=== PATIENT | female | born 1940 | race Caucasian/White ===

== ENCOUNTER 2017-05-28 10:03 | Inpatient (IN) | payer MEDICARE, BC ==
[2017-05-28] VITALS (7 sets, daily range): BP systolic 158–234; BP diastolic 68–104; PULSE 17–72; RESP 16–18; TEMP 97.6–98.4; O2SAT 91–96
[~2017-05-28] VITALS: Ht 162.6 cm; Wt 96.0 kg
[~2017-05-28 10:03] MED LIST: ALPR.25 PO; AMOX500T PO; ASPI81TA82 PO; BENI20TA25 PO; BRIM0.2S; LEVO100T4 PO; LEXA20TA PO; TIMO0.5S29 EACH EYE; TRAV0.00 EACH EYE
[2017-05-28] MEDS ORDERED: SODIUM CHLORIDE 0.9% FLUSH 10 ML FLUSH IV FLUSH PRN ×2 (10:45→14:15)
[2017-05-28] MEDS ORDERED: OMEP20TA93 PO (11:03)
[2017-05-28] MEDS ORDERED: TIMO0.5S30 EACH EYE (11:03)
[2017-05-28] MEDS ORDERED: ALPR0.25 PO (11:03)
[2017-05-28] MEDS ORDERED: ASPI-516 CHEW (11:03)
[2017-05-28] MEDS ORDERED: LEVO100T5 PO (11:03)
[2017-05-28] MEDS ORDERED: ESCI20TA PO (11:03)
[2017-05-28] MEDS ORDERED: TRAV0.00 EACH EYE (11:03)
[2017-05-28] MEDS ORDERED: BRIM0.2S4 EACH EYE (11:03)
[2017-05-28] MEDS ORDERED: LOSA100T PO (11:03)
[2017-05-28] MEDS ORDERED: AMLO5TAB2 PO (11:03)
--- NOTE | 2017-05-28 11:24 | RADRPT ---
EXAM DATE/TIME: 05/28/2017 11:12 [facility] COMPARISON: No previous studies available for comparison. INDICATIONS : Chest pain. Patient complains of mid epigastric pain that radiates to her back and also has vomiting. MEDICAL HISTORY : None. SURGICAL HISTORY : None. ENCOUNTER: Initial ACUITY: 1 day PAIN SCORE: 9/10 LOCATION: Bilateral chest FINDINGS: A single view of the chest demonstrates the lungs to be symmetrically aerated without evidence of mas s, infiltrate or effusion. The heart size is mildly prominent.. Osseous structures are intact. CONCLUSION: No acute intrathoracic disease. Bob Henderson MD on May 28, 2017 at 11:23 Board Certified Radiologist. This report was verified electronically.
[2017-05-28 11:32] LABS: AUTOMATED NEUTROPHIL # 5.6 TH/MM3 (1.8-7.7); BASOPHIL # 0.1 TH/MM3 (0-0.2); BASOPHIL % 0.8 % (0.0-2.0); EOSINOPHIL % 0.6 % (0.0-4.0); HEMATOCRIT 36.2 % (35.0-46.0); HEMOGLOBIN 12.5 GM/DL (11.6-15.3); LYMPH % 9.1 % (9.0-44.0); LYMPHOCYTE # 0.6 TH/MM3 (1.0-4.8); MEAN CELL VOLUME 91.4 FL (80.0-100.0); MEAN CORPUSCULAR HEMOGLOBIN 31.7 PG (27.0-34.0); MEAN CORPUSCULAR HGB CONC 34.6 % (32.0-36.0); MONO % 9.1 % (0.0-8.0); MONOCYTE # 0.6 TH/MM3 (0-0.9); NEUT % 80.4 % (16.0-70.0); PLATELET COUNT 238 TH/MM3 (150-450); RED BLOOD COUNT 3.96 MIL/MM3 (4.00-5.30); RED CELL DISTRIBUTION WIDTH 13.9 % (11.6-17.2); WHITE BLOOD COUNT 6.9 TH/MM3 (4.0-11.0)
[2017-05-28] MEDS ORDERED: ONDANSETRON HCL 4 MG/2 ML VIAL IV PUSH ONE (12:00)
[2017-05-28] MEDS ORDERED: MORPHINE SULFATE 2 MG/ML INJ IV PUSH ONE (12:00)
[2017-05-28 12:14] LABS: TROPONIN I LESS THAN 0.02 NG/ML (0.02-0.05)
[2017-05-28 12:15] LABS: ALBUMIN 3.6 GM/DL (3.4-5.0); ALKALINE PHOSPHATASE 166 U/L (45-117); ALT (GPT) 1103 U/L (10-53); AST (GOT) 1002 U/L (15-37); BICARBONATE 27.2 MEQ/L (21.0-32.0); BLOOD UREA NITROGEN 24 MG/DL (7-18); CALCIUM 8.9 MG/DL (8.5-10.1); CHLORIDE 106 MEQ/L (98-107); CREATININE 0.99 MG/DL (0.50-1.00); GLOMERULAR FILTRATION RATE 55 ML/MIN (>89); GLUCOSE,RANDOM 97 MG/DL (74-106); SODIUM (NA) 139 MEQ/L (136-145); TOTAL BILIRUBIN ADULT 1.4 MG/DL (0.2-1.0); TOTAL PROTEIN 7.3 GM/DL (6.4-8.2)
--- NOTE | 2017-05-28 12:35 | PD ---
HPI Chief Complaint: Abdominal Pain Time Seen by Provider: 10:58 Travel History International Travel<30 days: No Contact w/Intl Traveler<30days: No Traveled to known affect area: No History of Present Illness HPI 77-year-old female patient with history of hiatal hernia, hypertension, presents to the ER today for several days history of epigastric and left upper quadrant abdominal pain, started becoming nauseous and vomiting today. She states her pain is currently a 7 out of 10. She does not know of any exacerbating alleviating factors. She denies any chest pains, shortness of breath, or other symptoms. Modifying Factors: None Associated Signs & Symptoms: Left upper quadrant abdominal pain with nausea and vomiting Risk Factors: History of hiatal hernia PFSH Past Medical History Arthritis: Yes Anxiety: Yes Cardiovascular Problems: Yes (HTN) Glaucoma: Yes Hypertension: Yes Pancreatitis: Yes Thyroid Disease: Yes ?: Not Past Surgical History Appendectomy: Yes Hysterectomy: Yes Social History Alcohol Use: No Tobacco Use: No Substance Use: No Allergies-Medications (Allergen,Severity, Reaction): Coded Allergies: Sulfa (Sulfonamide Antibiotics) (Unverified Allergy, Severe, TONGUE/LIP SWELLING, 05/28/17) Reported Meds & Prescriptions Reported Meds & Active Scripts Active Reported Amlodipine (Amlodipine Besylate) 5 Mg Tab 5 Mg PO DAILY Losartan (Losartan Potassium) 100 Mg Tab 100 Mg PO DAILY Omeprazole 20 Mg Tab 40 Mg PO DAILY Escitalopram (Escitalopram Oxalate) 20 Mg Tab 20 Mg PO DAILY Brimonidine Opth Drops (Brimonidine Tartrate) 0.2% Soln 1 Drop EACH EYE BID Timolol Opth Drops 0.5 % Soln 1 Drop EACH EYE BID Travatan Z Opth Drops (Travoprost) 0.004 % Soln 1 Drop EACH EYE HS Levothyroxine (Levothyroxine Sodium) 100 Mcg Tab 100 Mcg PO DAILY Aspirin 81 Mg Chew 81 Mg CHEW DAILY Alprazolam 0.25 Mg Tab 0.25 Mg PO Q6H PRN Review of Systems Except as stated in HPI: all other systems reviewed are Neg Physical Exam Narrative GENERAL: Well-developed elderly white female patient currently in mild distress. Awake and oriented 3. SKIN: Focused skin assessment warm/dry. HEAD: Atraumatic. Normocephalic. EYES: Pupils equal and round. No scleral icterus. No injection or drainage. ENT: No nasal bleeding or discharge. Mucous membranes pink and moist. NECK: Trachea midline. No JVD. CARDIOVASCULAR: Regular rate and rhythm. No murmur appreciated. RESPIRATORY: No accessory muscle use. Clear to auscultation. Breath sounds equal bilaterally. GASTROINTESTINAL: Abdomen soft, epigastric and left upper quadrant tenderness without guarding or rebound, nondistended. Hepatic and splenic margins not palpable. MUSCULOSKELETAL: No obvious deformities. No clubbing. No cyanosis. No edema. NEUROLOGICAL: Awake and alert. No obvious cranial nerve deficits. Motor grossly within normal limits. Normal speech. PSYCHIATRIC: Appropriate mood and affect; insight and judgment normal. Data Data Last Documented VS Vital Signs Date Time Temp Pulse Resp B/P (MAP) Pulse Ox O2 Delivery O2 Flow Rate FiO2 05/28/17 12:30 58 18 177/77 (110) 93 Room Air 05/28/17 10:21 97.9 Orders Orders Electrocardiogram (05/28/17 ) Complete Blood Count With Diff (05/28/17 10:42) Comprehensive Metabolic Panel (05/28/17 10:42) Lipase (05/28/17 10:42) Iv Access Insert/Monitor (05/28/17 10:42) Ecg Monitoring (05/28/17 10:42) Oximetry (05/28/17 10:42) Sodium Chloride 0.9% Flush (Ns Flush) (05/28/17 10:45) Electrocardiogram (05/28/17 10:42) Ckmb (Isoenzyme) Profile (05/28/17 10:58) Troponin I (05/28/17 10:58) Chest, Single Ap (05/28/17 10:58) Ct Abd/Pel W Iv Contrast(Rout) (05/28/17 10:59) Morphine Inj (Morphine Inj) (05/28/17 12:00) Ondansetron Inj (Zofran Inj) (05/28/17 12:00) CKMB (05/28/17 11:00) CKMB% (05/28/17 11:00) Iohexol 350 Inj (Omnipaque 350 Inj) (05/28/17 12:50) Admit Order (Ed Use Only) (05/28/17 13:26) Labs Laboratory Tests Test 05/28/17 11:00 White Blood Count 6.9 TH/MM3 Red Blood Count 3.96 MIL/MM3 Hemoglobin 12.5 GM/DL Hematocrit 36.2 % Mean Corpuscular Volume 91.4 FL Mean Corpuscular Hemoglobin 31.7 PG Mean Corpuscular Hemoglobin Concent 34.6 % Red Cell Distribution Width 13.9 % Platelet Count 238 TH/MM3 Mean Platelet Volume 10.0 FL Neutrophils (%) (Auto) 80.4 % Lymphocytes (%) (Auto) 9.1 % Monocytes (%) (Auto) 9.1 % Eosinophils (%) (Auto) 0.6 % Basophils (%) (Auto) 0.8 % Neutrophils # (Auto) 5.6 TH/MM3 Lymphocytes # (Auto) 0.6 TH/MM3 Monocytes # (Auto) 0.6 TH/MM3 Eosinophils # (Auto) 0.0 TH/MM3 Basophils # (Auto) 0.1 TH/MM3 CBC Comment DIFF FINAL Differential Comment Blood Urea Nitrogen 24 MG/DL Creatinine 0.99 MG/DL Random Glucose 97 MG/DL Total Protein 7.3 GM/DL Albumin 3.6 GM/DL Calcium Level 8.9 MG/DL Alkaline Phosphatase 166 U/L Aspartate Amino Transf (AST/SGOT) 1002 U/L Alanine Aminotransferase (ALT/SGPT) 1103 U/L Total Bilirubin 1.4 MG/DL Sodium Level 139 MEQ/L Potassium Level 4.4 MEQ/L Chloride Level 106 MEQ/L Carbon Dioxide Level 27.2 MEQ/L Anion Gap 6 MEQ/L Estimat Glomerular Filtration Rate 55 ML/MIN Total Creatine Kinase 131 U/L Creatine Kinase MB 2.1 NG/ML Troponin I LESS THAN 0.02 NG/ML Lipase 32992 U/L MDM Medical Decision Making Medical Screen Exam Complete: Yes Emergency Medical Condition: Yes Medical Record Reviewed: Yes Interpretation(s) EKG shows NSR, no ST elevation or depression, and no arrhythmias. No significant T-wave inversions. Laboratory Tests Test 05/28/17 11:00 Red Blood Count 3.96 MIL/MM3 (4.00-5.30) Neutrophils (%) (Auto) 80.4 % (16.0-70.0) Monocytes (%) (Auto) 9.1 % (0.0-8.0) Lymphocytes # (Auto) 0.6 TH/MM3 (1.0-4.8) Blood Urea Nitrogen 24 MG/DL (7-18) Alkaline Phosphatase 166 U/L (45-117) Aspartate Amino Transf (AST/SGOT) 1002 U/L (15-37) Alanine Aminotransferase (ALT/SGPT) 1103 U/L (10-53) Total Bilirubin 1.4 MG/DL (0.2-1.0) Estimat Glomerular Filtration Rate 55 ML/MIN (>89) Troponin I LESS THAN 0.02 NG/ML Lipase 30860 U/L (73-393) Differential Diagnosis Hiatal hernia versus gastritis versus pancreatitis versus other acute intra- abdominal processes versus gastroenteritis Narrative Course Liver enzymes are elevated in pancreatic enzymes are elevated. CAT scan did not show any signs of acute intra-abdominal processes. Patient does have gallstones. There is concern of possible underlying gallstone pancreatitis. My plan would be to admit the patient for further evaluation. Case has been discussed with family practice resident service for admission. Diagnosis Primary Impression: Pancreatitis Additional Impression: Elevated liver enzymes Admitting Information Admitting Physician Requests: Admit Tom Valadez MD May 28, 2017 12:34
[2017-05-28] MEDS ORDERED: IOHEXOL 350 MG/ML 10 ML VIAL (for RAD DIAG) IVCONTRAST ONE (12:50)
--- NOTE | 2017-05-28 13:02 | RADRPT ---
EXAM DATE/TIME: 05/28/2017 12:44 [facility] COMPARISON: No previous studies available for comparison. INDICATIONS : Upper abdomen pain radiatng to back IV CONTRAST: 87 cc Omnipaque 350 (iohexol) IV ORAL CONTRAST: Patient refused oral contrast. RADIATION DOSE: 9.30 CTDIvol (mGy) MEDICAL HISTORY : Hypertension. SURGICAL HISTORY : Hysterectomy. ENCOUNTER: Initial ACUITY: 1 day PAIN SCALE: 8/10 LOCATION: upper quadrant TECHNIQUE: Volumetric scanning of the abdomen and pelvis was performed. Using automated exposure control and ad justment of the mA and/or kV according to patient size, radiation dose was kept as low as reasonably achievable to obtain optimal diagnostic quality images. DICOM format image data is available electro nically for review and comparison. FINDINGS: LOWER LUNGS: Mild bibasilar atelectasis, right greater than left. LIVER: Homogeneous density without lesion. There is no dilation of the biliary tree. Faint calcified gallst ones in the gallbladder.. SPLEEN: Normal size without lesion. PANCREAS: Within normal limits. KIDNEYS: Normal in size and shape. There is no mass, stone or hydronephrosis. ADRENAL GLANDS: Within normal limits. VASCULAR: There is no aortic aneurysm. Atherosclerotic changes. BOWEL/MESENTERY: The stomach, small bowel, and colon demonstrate no acute abnormality. There is no free intraperitone al air or fluid. Scattered diverticulosis of the descending and sigmoid colon without inflammatory ch anges. There is stool throughout the colon. ABDOMINAL WALL: Within normal limits. RETROPERITONEUM: There is no lymphadenopathy. BLADDER: No wall thickening or mass. No calcifications. REPRODUCTIVE: There is a partially calcified left adnexal cyst measuring 1.9 cm. Status post hysterectomy. INGUINAL: There is no lymphadenopathy or hernia. MUSCULOSKELETAL: Within normal limits for patient age. CONCLUSION: 1. Scattered diverticulosis of the descending and sigmoid colon without inflammatory changes. 2. 1.9 cm partially calcified left adnexal cyst. 3. Multiple faint gallstones in the gallbladder. No biliary tract obstruction.. 4. No acute pathology. Bob Henderson MD on May 28, 2017 at 12:56 Board Certified Radiologist. This report was verified electronically.
--- NOTE | 2017-05-28 13:55 | HHI.HP ---
[facility] Service Family Medicine Primary Care Physician Denis Reddy MD Admission Diagnosis Pancreatitis/elevated liver enzymes Diagnoses: Chief Complaint: epigastric pain and vomiting International Travel<30 Days: No Contact w/Intl Traveler<30days: No Known Affected Area: No History of Present Illness Ms Mcintyre is a 77YO female w/PMHx hypothyroidism, HTN, and depression who presents with nausea and vomiting last night accompanied with 9/10 epigastric pain this morning. She reports approximately 1-2 months of epigastric swelling and intermittent pain that she reports as feeling swollen in her epigastric area. The swollen feeling usually occurred with waking each morning. Last night nausea and vomiting started around 8 or 8:30PM. She had 2x emesis. The first episode was large volume followed by the second episode 10 minutes later which was less volume. Both episodes were non-bloody but were bilious. She describes the pain as a feeling of being sore and achy with marked improvement from 9/10 to 5-6/10 s/p morphine. She says pain is made worse during a BM. Reports she had one other less acute attack about 2 years ago. Denies CP, SOB, DVT pain and sami colored stools. Reports no other sxs except as indicated in ROS. (Lew Ash MD R1) Review of Systems Constitutional: COMPLAINS OF: Dizziness (sometimes on standing), DENIES: Fever , Chills Eyes: COMPLAINS OF: Eye pain (blood blister on right eye) Ears, nose, mouth, throat: COMPLAINS OF: Throat pain, DENIES: Nasal discharge, Oral lesions, Ear Pain Respiratory: DENIES: Cough, Shortness of breath Cardiovascular: DENIES: Chest pain, Palpitations, Syncope Gastrointestinal: COMPLAINS OF: Abdominal pain, Nausea, Vomiting, DENIES: Black stools, Bloody stools, Constipation, Diarrhea Genitourinary: DENIES: Urinary frequency, Urinary incontinence, Hematuria, Dysuria Musculoskeletal: COMPLAINS OF: Back pain Integumentary: DENIES: Rash Hematologic/lymphatic: COMPLAINS OF: Bruising Immunologic/allergic: DENIES: Urticaria Neurologic: COMPLAINS OF: Headache, DENIES: Localized weakness, Paresthesias, Seizures (Lew Ash MD R1) Past Family Social History Past Medical History low back pain HTN glaucoma hypothyroidism Past Surgical History hyterectomy appendectomy Reported Medications Reported Meds & Active Scripts Active Reported Amlodipine (Amlodipine Besylate) 5 Mg Tab 5 Mg PO DAILY Losartan (Losartan Potassium) 100 Mg Tab 100 Mg PO DAILY Omeprazole 20 Mg Tab 40 Mg PO DAILY Escitalopram (Escitalopram Oxalate) 20 Mg Tab 20 Mg PO DAILY Brimonidine Opth Drops (Brimonidine Tartrate) 0.2% Soln 1 Drop EACH EYE BID Timolol Opth Drops 0.5 % Soln 1 Drop EACH EYE BID Travatan Z Opth Drops (Travoprost) 0.004 % Soln 1 Drop EACH EYE HS Levothyroxine (Levothyroxine Sodium) 100 Mcg Tab 100 Mcg PO DAILY Aspirin 81 Mg Chew 81 Mg CHEW DAILY Alprazolam 0.25 Mg Tab 0.25 Mg PO Q6H PRN (Lew Ash MD R1) Allergies: Coded Allergies: Sulfa (Sulfonamide Antibiotics) (Unverified Allergy, Severe, TONGUE/LIP SWELLING, 05/28/17) Active Ordered Medications Current Medications Medications (Trade) Dose Ordered Sig/Oscar Route Start Time Stop Time Status Last Admin (NS Flush) 2 ml UNSCH PRN IV FLUSH 05/28/17 10:45 05/28/17 11:50 Family History Mother - osteoporosis Father - from [place] at 74 Aunt with breast cancer Social History No EtOH, tobacco or drugs Lives with son and [id number] (Lew Ash MD R1) Physical Exam Vital Signs Vital Signs Date Time Temp Pulse Resp B/P (MAP) Pulse Ox O2 Delivery O2 Flow Rate FiO2 05/28/17 12:30 58 18 177/77 (110) 93 Room Air 05/28/17 10:21 97.9 60 17 234/104 (147) 95 Physical Exam GENERAL: This is a well-nourished, well-developed patient, in no apparent distress. SKIN: No rashes, ecchymoses or lesions. Cool and dry. HEAD: Atraumatic. Normocephalic. No temporal or scalp tenderness. EYES: Pupils equal round and reactive. Extraocular motions intact. No scleral icterus. No injection or drainage. ENT: Nose without bleeding, purulent drainage or septal hematoma. Throat without erythema, tonsillar hypertrophy or exudate. Uvula midline. Airway patent. NECK: Trachea midline. No JVD or lymphadenopathy. Supple, nontender, no meningeal signs. CARDIOVASCULAR: Regular rate and rhythm without murmurs, gallops, or rubs. RESPIRATORY: Clear to auscultation. Breath sounds equal bilaterally. No wheezes , rales, or rhonchi. GASTROINTESTINAL: Abdomen soft, non-tender, nondistended. No hepato-splenomegaly , or palpable masses. No guarding. MUSCULOSKELETAL: Extremities without clubbing, cyanosis, or edema. No joint tenderness, effusion, or edema noted. No calf tenderness. Negative Homans sign bilaterally. NEUROLOGICAL: Awake and alert. Cranial nerves II through XII intact. Motor and sensory grossly within normal limits. Five out of 5 muscle strength in all muscle groups. Normal speech. Laboratory Laboratory Tests Test 05/28/17 11:00 White Blood Count 6.9 Red Blood Count 3.96 Hemoglobin 12.5 Hematocrit 36.2 Mean Corpuscular Volume 91.4 Mean Corpuscular Hemoglobin 31.7 Mean Corpuscular Hemoglobin Concent 34.6 Red Cell Distribution Width 13.9 Platelet Count 238 Mean Platelet Volume 10.0 Neutrophils (%) (Auto) 80.4 Lymphocytes (%) (Auto) 9.1 Monocytes (%) (Auto) 9.1 Eosinophils (%) (Auto) 0.6 Basophils (%) (Auto) 0.8 Neutrophils # (Auto) 5.6 Lymphocytes # (Auto) 0.6 Monocytes # (Auto) 0.6 Eosinophils # (Auto) 0.0 Basophils # (Auto) 0.1 CBC Comment DIFF FINAL Differential Comment Blood Urea Nitrogen 24 Creatinine 0.99 Random Glucose 97 Total Protein 7.3 Albumin 3.6 Calcium Level 8.9 Alkaline Phosphatase 166 Aspartate Amino Transf (AST/SGOT) 1002 Alanine Aminotransferase (ALT/SGPT) 1103 Total Bilirubin 1.4 Sodium Level 139 Potassium Level 4.4 Chloride Level 106 Carbon Dioxide Level 27.2 Anion Gap 6 Estimat Glomerular Filtration Rate 55 Total Creatine Kinase 131 Creatine Kinase MB 2.1 Troponin I LESS THAN 0.02 Lipase 47624 (Lew Ash MD R1) Result Diagram: 05/28/17 1100 05/28/17 1100 Caprini VTE Risk Assessment Caprini VTE Risk Assessment: Mod/High Risk (score >= 2) Caprini Risk Assessment Model Point Value = 1 Point Value = 2 Point Value = 3 Point Value = 5 Age 41-60 Minor surgery BMI > 25 kg/m2 Swollen legs Varicose veins or History of unexplained or recurrent spontaneous Oral contraceptives or hormone replacement Sepsis (< 1 month) Serious lung disease, including pneumonia (< 1 month) Abnormal pulmonary function Acute myocardial infarction Congestive heart failure (< 1 month) History of inflammatory bowel disease Medical patient at bed rest Age 61-74 Arthroscopic surgery Major open surgery (> 45 min) Laparoscopic surgery (> 45 min) Malignancy Confined to bed (> 72 hours) Immobilizing plaster cast Central venous access Age >= 75 History of VTE Family history of VTE Factor V Leiden Prothrombin [id number] Lupus anticoagulant Anticardiolipin antibodies Elevated serum homocysteine Heparin-induced thrombocytopenia Other congenital or acquired thrombophilia Stroke (< 1 month) Elective arthroplasty Hip, pelvis, or leg fracture Acute spinal cord injury (< 1 month) Prophylaxis Regimen Total Risk Factor Score Risk Level Prophylaxis Regimen 0-1 Low Early ambulation 2 Moderate Order ONE of the following: *Sequential Compression Device (SCD) *Heparin 5000 units SQ BID 3-4 Higher Order ONE of the following medications: *Heparin 5000 units SQ TID *Enoxaparin/Lovenox 40 mg SQ daily (WT < 150 kg, CrCl > 30 mL/min) *Enoxaparin/Lovenox 30 mg SQ daily (WT < 150 kg, CrCl > 10-29 mL/min) *Enoxaparin/Lovenox 30 mg SQ BID (WT < 150 kg, CrCl > 30 mL/min) AND/OR *Sequential Compression Device (SCD) 5 or more Highest Order ONE of the following medications: *Heparin 5000 units SQ TID (Preferred with Epidurals) *Enoxaparin/Lovenox 40 mg SQ daily (WT < 150 kg, CrCl > 30 mL/min) *Enoxaparin/Lovenox 30 mg SQ daily (WT < 150 kg, CrCl > 10-29 mL/min) *Enoxaparin/Lovenox 30 mg SQ BID (WT < 150 kg, CrCl > 30 mL/min) AND *Sequential Compression Device (SCD) (Lew Ash MD R1) Assessment and Plan Assessment and Plan 77YO female with PMHx hypothyroidism, depression, HTN, and glaucoma p/w acute pancreatitis likely 2/2 gallstones in the absence of EtOH consumption. Lipase 82421, AST 1002, ALT 1103, TBili 1.4, and CT showing evidence of diverticulosis w/o inflammatory changes, gallstones in gallbladder without obstruction on admission. GI has been consulted. Code Status Full Code Discussed Condition With Oziel Aguirre and Tatianna Harvey (Lew Ash MD R1) Attending Attestation Patient seen and examined. Case reviewed and discussed with the resident team. Agree with plan of care as discussed with me and documented in the resident note. she was seen in the ED on admission. agree with a gallstone as being etiology (Ana Aguirre MD) Problem List: (1) Acute pancreatitis ICD Codes: K85.90 - Acute pancreatitis without necrosis or infection, unspecified Status: Acute Plan: Pt with nausea, vomiting and epigastric pain, labs indicating Lipase 90158, elevated LFTs with AST 1002, ALT 1103, AP 166, Tbili 1.4, and CT abdomen/ pelvis showing diverticulosis of the transverse and descending colon without inflammation and gallstones visualized in the gallbladder without obstruction. -GI consulted--appreciate recs -NS IVF at 150ml/hr -Pain control --Morphine 2mg q3h IV PRN --Morphine 4mg q3h IV breakthru -NPO allowing sips/chips for now -Zofran 4mg IV q6h PRN nausea -Tylenol 650mg q6h fever (2) Elevated liver enzymes ICD Codes: R74.8 - Abnormal levels of other serum enzymes Status: Acute Plan: AST 1002 / ALT 1103 / TBili 1.4 on admission Plan as above (3) HTN (hypertension) ICD Codes: I10 - Essential (primary) hypertension Plan: Continue home medications -Amlodipine 5mg PO daily -Losartan 100mg PO daily -Start Hydralazine 10mg PO q4h PRN if SBP>170 OR DBP>100 (4) Hypothyroidism ICD Codes: E03.9 - Hypothyroidism, unspecified Status: Chronic Plan: Continue home dose Levothyroxine 100mcg daily (5) Anxiety and depression ICD Codes: F41.8 - Other specified anxiety disorders Status: Chronic Plan: Continue home meds -Escitalopram 20mg daily -Xanax 0.25mg q6h PRN (6) Glaucoma ICD Codes: H40.9 - Unspecified glaucoma Status: Chronic Plan: Continue her home glaucoma meds--she follows with an ophthomologist -Brimonidine Opth Drops (Brimonidine Tartrate) 0.2% Soln 1 Drop EACH EYE BID -Timolol Opth Drops 0.5 % Soln 1 Drop EACH EYE BID -Travatan Z Opth Drops (Travoprost) 0.004 % Soln 1 Drop EACH EYE HS (7) FEN/GI/PPx Status: Acute Plan: Fluids: Start NS IVF at 150ml/hr Electrolytes: wnl; will monitor daily and replete as necessary Nutrition: NPO with sips and chips allowed for now GI: Protonix 40mg daily PPx: SCDs bilaterally for now Tylenol 650mg q6h for fever - use sparingly due to elevated LFTs -Continue home dose ASA 81mg chew daily (Lew Ash MD R1) Physician Certification 2 Midnight Certification Type: Admission for Inpatient Services Order for Inpatient Services The services are ordered in accordance with Medicare regulations or non- Medicare payer requirements, as applicable. In the case of services not specified as inpatient-only, they are appropriately provided as inpatient services in accordance with the 2-midnight benchmark. Estimated LOS (days): 3 days is the estimated time the patient will need to remain in the hospital, assuming treatment plan goals are met and no additional complications. Post-Hospital Plan: Home (Lew Ash MD R1) Problem Qualifiers (1) Acute pancreatitis: (2) HTN (hypertension): Qualified Codes: I10 - Essential (primary) hypertension (3) Hypothyroidism: Qualified Codes: E03.9 - Hypothyroidism, unspecified (4) Glaucoma: Qualified Codes: H40.9 - Unspecified glaucoma Lew Ash MD R1 May 28, 2017 13:55 Ana Aguirre MD May 31, 2017 13:05
[2017-05-28] MEDS ORDERED: MAGNESIUM HYDROXIDE SUSP 30 ML CUP PO PRN (14:15)
[2017-05-28] MEDS ORDERED: ONDANSETRON HCL 4 MG/2 ML VIAL IVP PRN (14:15)
[2017-05-28] MEDS ORDERED: SENNOSIDES 8.6 MG TAB PO PRN (14:15)
[2017-05-28] MEDS ORDERED: LACTULOSE SYRUP 20 GM/30 ML CUP PO PRN (14:15)
[2017-05-28] MEDS ORDERED: NALOXONE HCL 0.4 MG/ML AMP IV PUSH PRN (14:15)
[2017-05-28] MEDS ORDERED: ACETAMINOPHEN 325 MG TAB PO PRN (14:15)
[2017-05-28] MEDS ORDERED: MORPHINE SULFATE 2 MG/ML INJ SQ PRN ×2 (14:15→17:15)
[2017-05-28] MEDS ORDERED: BISACODYL 10 MG SUPP RECTAL PRN (14:15)
[2017-05-28] MEDS: SODIUM CHLOR 0.9% 1000 ML INJ 1,000 ML IV SCH ×2 (14:29→14:45)
[2017-05-28] MEDS ORDERED: ALPRAZolam 0.25 MG TAB PO PRN (14:45)
[2017-05-28] MEDS ORDERED: hydrALAZINE HCL 10 MG TAB PO PRN (14:45)
--- NOTE | 2017-05-28 15:01 | PD.CONS ---
HPI History of Present Illness This is a 77 year old female who presented with epigastric pain, distention, and n/v. Onset pain 1 month ago and gradually worsened, n/v began yesterday. no blood in emesis or stool, no black tarry stool, no unintentional weight loss. No diarrhea. CT showed gallstones, no biliary tract obstruction. Pt has distant hx pancreatitis, when she was in college. She denies ETOH consumption. No prior problems with gallbladder or liver. last colonoscopy [address] Rodrigues and no abnormal findings. (Angélica Ascencio) PFSH Past Medical History OA glaucoma Past Surgical History hysterectomy appendectomy (Angélica Ascencio) Coded Allergies: Sulfa (Sulfonamide Antibiotics) (Unverified Allergy, Severe, TONGUE/LIP SWELLING, 05/28/17) Family History breast ca - aunt Social History no toxic habits (Angélica Ascencio) Review of Systems Constitutional: DENIES: Fever, Weight loss Endocrine: DENIES: Polydipsia Eyes: DENIES: Blurred vision Ears, nose, mouth, throat: DENIES: Hearing loss Respiratory: DENIES: Cough Cardiovascular: DENIES: Chest pain Gastrointestinal: COMPLAINS OF: Abdominal pain, Nausea, Vomiting, Swelling of Abdomen, DENIES: Black stools, Bloody stools, Constipation, Diarrhea, Hematemesis Genitourinary: DENIES: Hematuria Musculoskeletal: DENIES: Muscle aches Integumentary: DENIES: Abnormal pigmentation Hematologic/lymphatic: DENIES: Bruising Neurologic: DENIES: Headache Psychiatric: DENIES: Confusion (Angélica Ascencio) GI Exam Vitals I&O Vital Signs Date Time Temp Pulse Resp B/P (MAP) Pulse Ox O2 Delivery O2 Flow Rate FiO2 05/28/17 12:30 58 18 177/77 (110) 93 Room Air 05/28/17 10:21 97.9 60 17 234/104 (147) 95 Imaging Last Impressions Abdomen/Pelvis CT 05/28/17 1059 Signed Impressions: Service Date/Time: Sunday, May 28, 2017 12:44 - CONCLUSION: 1. Scattered diverticulosis of the descending and sigmoid colon without inflammatory changes. 2. 1.9 cm partially calcified left adnexal cyst. 3. Multiple faint gallstones in the gallbladder. No biliary tract obstruction.. 4. No acute pathology. Bob Henderson MD Chest X-Ray 05/28/17 1058 Signed Impressions: Service Date/Time: Sunday, May 28, 2017 11:12 - CONCLUSION: No acute intrathoracic disease. Bob Henderson MD Laboratory Test 05/28/17 11:00 White Blood Count 6.9 TH/MM3 Red Blood Count 3.96 MIL/MM3 Hemoglobin 12.5 GM/DL Hematocrit 36.2 % Mean Corpuscular Volume 91.4 FL Mean Corpuscular Hemoglobin 31.7 PG Mean Corpuscular Hemoglobin Concent 34.6 % Red Cell Distribution Width 13.9 % Platelet Count 238 TH/MM3 Mean Platelet Volume 10.0 FL Neutrophils (%) (Auto) 80.4 % Lymphocytes (%) (Auto) 9.1 % Monocytes (%) (Auto) 9.1 % Eosinophils (%) (Auto) 0.6 % Basophils (%) (Auto) 0.8 % Neutrophils # (Auto) 5.6 TH/MM3 Lymphocytes # (Auto) 0.6 TH/MM3 Monocytes # (Auto) 0.6 TH/MM3 Eosinophils # (Auto) 0.0 TH/MM3 Basophils # (Auto) 0.1 TH/MM3 CBC Comment DIFF FINAL Differential Comment Blood Urea Nitrogen 24 MG/DL Creatinine 0.99 MG/DL Random Glucose 97 MG/DL Total Protein 7.3 GM/DL Albumin 3.6 GM/DL Calcium Level 8.9 MG/DL Alkaline Phosphatase 166 U/L Aspartate Amino Transf (AST/SGOT) 1002 U/L Alanine Aminotransferase (ALT/SGPT) 1103 U/L Total Bilirubin 1.4 MG/DL Sodium Level 139 MEQ/L Potassium Level 4.4 MEQ/L Chloride Level 106 MEQ/L Carbon Dioxide Level 27.2 MEQ/L Anion Gap 6 MEQ/L Estimat Glomerular Filtration Rate 55 ML/MIN Total Creatine Kinase 131 U/L Creatine Kinase MB 2.1 NG/ML Troponin I LESS THAN 0.02 NG/ML Lipase 71816 U/L Physical Examination HEENT: PERRL; normocephalic; atraumatic; no jaundice. CHEST: CTA CARDIAC: RRR ABDOMEN: firmness palpated epigastric area, upper quadrant distention, TTP RUQ and epigastrium, no hepatosplenomegaly; bowel sounds are present in all four quadrants. EXTREMITIES: No clubbing, cyanosis, or edema. SKIN: Normal; no rash; no jaundice. SAFETY ADMINISTRATOR: No focal deficits; alert and oriented times three. (Angélica Ascencio) Assessment and Plan Plan ASSESSMENT - abd pain, n/v, elevated LFTs - pancreatitis, likely 2/2 gallstone. pt denies etoh. CT showed gallstones, no biliary obstruction. lipase > 14,000. AST 1002, ALT 1103 ALP 166 Tbil 1.4. will get MRCP PLAN - MRCP with contrast - NPO for now - pain mgmt - IVF - check lipase, CMP in am - further recs to follow pt seen by myself and Dr Blanchard and this note is on his behalf (Angélica Ascencio) Physician Comments Seen and examined, plan as above. MRCP reviewed , likely stone passed. Clinically and labs improving. Will follow up with you. (Sonia Blanchard MD) Angélica Ascencio May 28, 2017 15:01 Sonia Blanchard MD May 29, 2017 08:51
[2017-05-28] MEDS ORDERED: MORPHINE SULFATE 2 MG/ML INJ IV PUSH PRN (15:15)
[2017-05-28] MEDS: BRIMONIDINE TARTRATE 0.2% OPHT SOLN 5 ML BTL EACH EYE SCH (21:00)
[2017-05-28] MEDS: TIMOLOL MALEATE 0.5% OPHT SOLN 5 ML BTL EACH EYE SCH (21:00)
[2017-05-28] MEDS: LATANOPROST 0.005% OPHT SOLN 2.5 ML BTL EACH EYE SCH (22:29)
[2017-05-28] MEDS: SODIUM CHLORIDE 0.9% FLUSH 10 ML FLUSH IV FLUSH SCH (22:29)
[2017-05-28] MEDS: DOCUSATE SODIUM 50 MG/SENNA 8.6 MG TAB PO SCH (22:31)
--- NOTE | 2017-05-28 23:28 | RADRPT ---
EXAM DATE/TIME: 05/28/2017 20:01 [facility] COMPARISON: CT ABDOMEN & PELVIS W CONTRAST, May 28, 2017, 12:44. INDICATIONS : Obstruction. Nausea and vomiting. MEDICAL HISTORY : Hypertension. Gastroesophageal reflux disease. SURGICAL HISTORY : Appendectomy. Hysterectomy. ENCOUNTER: Initial ACUITY: 1 day PAIN SCORE: 4/10 LOCATION: Right upper quadrant TECHNIQUE: Multiplanar, multisequence magnetic resonance imaging of the abdomen was performed. High-resolution 3D dataset was utilized to reconstruct maximum-intensity projection (MIP) images. FINDINGS: INTRAHEPATIC BILE DUCTS: Within normal limits. No significant anatomical variant is present. EXTRAHEPATIC BILE DUCTS: In the common hepatic duct measures 9 mm and distal common bile duct measures 7 mm. No distal obstruc ting stone or mass is identified. GALLBLADDER: Gallbladder contains multiple stones. There is mild diffuse wall thickening. No Perclose cystic fluid is present. LIVER: Normal size and signal intensity. No concerning liver lesion is identified on this non-contrast exam. PANCREAS: The main pancreatic duct is normal in size. There is no significant anatomical variant. Signal inte nsity is within normal limits. No mass is visualized on this non-contrast exam. OTHER: The remaining visualized structures demonstrate no acute abnormality on this non-contrast exam. CONCLUSION: 1. Cholelithiasis with mild gallbladder wall thickening. 2. There is mild dilatation of the common hepatic duct and common bile duct measuring 9 mm and 7 mm, respectively. However, no distal obstructing stone or mass is identified. Cuco Mccray MD on May 28, 2017 at 23:21 Board Certified Radiologist. This report was verified electronically.
[2017-05-29] VITALS (13 sets, daily range): BP systolic 154–168; BP diastolic 56–71; PULSE 62–86; RESP 18–20; TEMP 97.8–98.6; O2SAT 92–96
[2017-05-29] MEDS: SODIUM CHLOR 0.9% 1000 ML INJ 1,000 ML IV SCH ×4 (03:26→23:26)
[2017-05-29] MEDS: LEVOTHYROXINE SODIUM 100 MCG TAB PO SCH (06:00)
[2017-05-29 07:04] LABS: ALBUMIN 3.1 GM/DL (3.4-5.0); AST (GOT) 337 U/L (15-37); BICARBONATE 26.9 MEQ/L (21.0-32.0); BLOOD UREA NITROGEN 18 MG/DL (7-18); CALCIUM 8.5 MG/DL (8.5-10.1); CHLORIDE 108 MEQ/L (98-107); CREATININE 0.94 MG/DL (0.50-1.00); GLOMERULAR FILTRATION RATE 58 ML/MIN (>89); GLUCOSE,RANDOM 82 MG/DL (74-106); SODIUM (NA) 145 MEQ/L (136-145)
[2017-05-29 07:05] LABS: ALT (GPT) 697 U/L (10-53)
[2017-05-29 07:07] LABS: ALKALINE PHOSPHATASE 154 U/L (45-117); TOTAL BILIRUBIN ADULT 0.5 MG/DL (0.2-1.0); TOTAL PROTEIN 6.3 GM/DL (6.4-8.2)
[2017-05-29] MEDS: SODIUM CHLORIDE 0.9% FLUSH 10 ML FLUSH IV FLUSH SCH ×2 (07:18→20:55)
[2017-05-29] MEDS: PANTOPRAZOLE SOD 40 MG DELAYED RELEASE TAB PO SCH (08:39)
[2017-05-29] MEDS: ASPIRIN 81 MG CHEW TAB CHEW SCH (08:39)
[2017-05-29] MEDS: DOCUSATE SODIUM 50 MG/SENNA 8.6 MG TAB PO SCH ×2 (08:39→20:55)
[2017-05-29] MEDS: ESCITALOPRAM OXALATE 20 MG TAB PO SCH (08:39)
[2017-05-29] MEDS: amLODIPine BESYLATE 5 MG TAB PO SCH (08:39)
[2017-05-29] MEDS: LOSARTAN 50 MG TAB PO SCH (08:39)
[2017-05-29] MEDS: TIMOLOL MALEATE 0.5% OPHT SOLN 5 ML BTL EACH EYE SCH ×2 (09:23→20:58)
[2017-05-29] MEDS: BRIMONIDINE TARTRATE 0.2% OPHT SOLN 5 ML BTL EACH EYE SCH ×2 (09:23→20:58)
--- NOTE | 2017-05-29 09:40 | HHI.HP ---
[facility] Service Family Medicine Primary Care Physician Denis Reddy MD Admission Diagnosis Pancreatitis/elevated liver enzymes Diagnoses: (1) Acute pancreatitis Diagnosis: Principal (2) Elevated liver enzymes Diagnosis: Principal (3) HTN (hypertension) Diagnosis: Principal (4) Hypothyroidism Diagnosis: Principal (5) Anxiety and depression Diagnosis: Principal (6) Glaucoma Diagnosis: Principal (7) FEN/GI/PPx International Travel<30 Days: No Contact w/Intl Traveler<30days: No Known Affected Area: No History of Present Illness Ms Mcintyre is a 77YO female w/PMHx hypothyroidism, HTN, and depression who presented with nausea and vomiting accompanied with 9/10 epigastric pain. She reports approximately 1-2 months of epigastric swelling and intermittent pain that she reports as feeling swollen in her epigastric area. The swollen feeling usually occurred with waking each morning. She also reported that about 20 minutes after she ate she would often have some pain for up to an hour. The night of admission, she had nausea and vomiting starting around 8 or 8: 30PM. She had 2x emesis. The first episode was large volume followed by the second episode 10 minutes later which was less volume. Both episodes were non- bloody but were bilious. She describes the pain as a feeling of being sore and achy with marked improvement from 9/10 to 5-6/10 s/p morphine. She says pain is made worse during a BM. Reports she had one other less acute attack about 2 years ago. Denies CP, SOB, DVT pain and sami colored stools. Reports no other sxs except as indicated in ROS. Overnight, she felt improved and has much less pain today. Her labs are remarkably improved with a big drop in her lipase and LFTs. Her imaging shows some dilation of her ducts but no acute obstruction and stones in her gallbladder. She is agreeable to talk to surgery today. Review of Systems Other Constitutional: COMPLAINS OF: Dizziness (sometimes on standing), DENIES: Fever , Chills Eyes: COMPLAINS OF: Eye pain (blood blister on right eye) Ears, nose, mouth, throat: COMPLAINS OF: Throat pain, DENIES: Nasal discharge, Oral lesions, Ear Pain Respiratory: DENIES: Cough, Shortness of breath Cardiovascular: DENIES: Chest pain, Palpitations, Syncope Gastrointestinal: COMPLAINS OF: Abdominal pain, Nausea, Vomiting, DENIES: Black stools, Bloody stools, Constipation, Diarrhea Genitourinary: DENIES: Urinary frequency, Urinary incontinence, Hematuria, Dysuria Musculoskeletal: COMPLAINS OF: Back pain Integumentary: DENIES: Rash Hematologic/lymphatic: COMPLAINS OF: Bruising Immunologic/allergic: DENIES: Urticaria Neurologic: COMPLAINS OF: Headache, DENIES: Localized weakness, Paresthesias, Seizures Past Family Social History Past Medical History low back pain HTN glaucoma hypothyroidism Past Surgical History hyterectomy appendectomy Allergies: Coded Allergies: Sulfa (Sulfonamide Antibiotics) (Unverified Allergy, Severe, TONGUE/LIP SWELLING, 05/28/17) Family History Mother - osteoporosis Father - from [place] at 74 Aunt with breast cancer Social History No EtOH, tobacco or drugs Lives with son and [id number] Physical Exam Vital Signs Vital Signs Date Time Temp Pulse Resp B/P (MAP) Pulse Ox O2 Delivery O2 Flow Rate FiO2 05/29/17 08:54 95 05/29/17 08:14 97.8 73 18 161/62 (95) 92 05/29/17 07:00 66 05/29/17 02:20 98.3 66 18 158/71 (100) 96 05/28/17 23:00 98.4 72 16 158/68 (98) 96 05/28/17 20:00 98.2 63 18 164/74 (104) 94 05/28/17 17:30 98.3 62 18 178/71 (106) 93 05/28/17 16:36 97.6 62 16 210/86 (127) 91 05/28/17 15:57 17 18 185/76 (112) 93 Room Air 05/28/17 12:30 58 18 177/77 (110) 93 Room Air 05/28/17 10:21 97.9 60 17 234/104 (147) 95 Physical Exam GENERAL: This is a well-nourished, well-developed patient, in no pain this am SKIN: No rashes, ecchymoses or lesions. Cool and dry. HEAD: Atraumatic. Normocephalic. EYES: Pupils equal round and reactive. Extraocular motions intact. No scleral icterus. No injection or drainage. ENT: Nose without bleeding, purulent drainage or septal hematoma. Airway patent. NECK: Trachea midline. No JVD or lymphadenopathy. Supple, nontender, no meningeal signs. CARDIOVASCULAR: Regular rate and rhythm without murmurs, gallops, or rubs. RESPIRATORY: Clear to auscultation. Breath sounds equal bilaterally. No wheezes , rales, or rhonchi. GASTROINTESTINAL: Abdomen soft, non-tender, nondistended. No hepato-splenomegaly , or palpable masses. No guarding. MUSCULOSKELETAL: Extremities without clubbing, cyanosis, or edema. No joint tenderness, effusion, or edema noted. No calf tenderness. Negative Homans sign bilaterally. NEUROLOGICAL: Awake and alert. Cranial nerves II through XII intact. Motor and sensory grossly within normal limits. Five out of 5 muscle strength in all muscle groups. Normal speech. Laboratory Laboratory Tests Test 05/28/17 11:00 05/29/17 05:36 White Blood Count 6.9 Red Blood Count 3.96 Hemoglobin 12.5 Hematocrit 36.2 Mean Corpuscular Volume 91.4 Mean Corpuscular Hemoglobin 31.7 Mean Corpuscular Hemoglobin Concent 34.6 Red Cell Distribution Width 13.9 Platelet Count 238 Mean Platelet Volume 10.0 Neutrophils (%) (Auto) 80.4 Lymphocytes (%) (Auto) 9.1 Monocytes (%) (Auto) 9.1 Eosinophils (%) (Auto) 0.6 Basophils (%) (Auto) 0.8 Neutrophils # (Auto) 5.6 Lymphocytes # (Auto) 0.6 Monocytes # (Auto) 0.6 Eosinophils # (Auto) 0.0 Basophils # (Auto) 0.1 CBC Comment DIFF FINAL Differential Comment Blood Urea Nitrogen 24 18 Creatinine 0.99 0.94 Random Glucose 97 82 Total Protein 7.3 6.3 Albumin 3.6 3.1 Calcium Level 8.9 8.5 Alkaline Phosphatase 166 154 Aspartate Amino Transf (AST/SGOT) 1002 337 Alanine Aminotransferase (ALT/SGPT) 1103 697 Total Bilirubin 1.4 0.5 Sodium Level 139 145 Potassium Level 4.4 3.7 Chloride Level 106 108 Carbon Dioxide Level 27.2 26.9 Anion Gap 6 10 Estimat Glomerular Filtration Rate 55 58 Total Creatine Kinase 131 Creatine Kinase MB 2.1 Troponin I LESS THAN 0.02 Lipase 48880 1032 Result Diagram: 05/28/17 1100 05/29/17 0536 Caprini VTE Risk Assessment Caprini VTE Risk Assessment: Mod/High Risk (score >= 2) Caprini Risk Assessment Model Point Value = 1 Point Value = 2 Point Value = 3 Point Value = 5 Age 41-60 Minor surgery BMI > 25 kg/m2 Swollen legs Varicose veins or History of unexplained or recurrent spontaneous Oral contraceptives or hormone replacement Sepsis (< 1 month) Serious lung disease, including pneumonia (< 1 month) Abnormal pulmonary function Acute myocardial infarction Congestive heart failure (< 1 month) History of inflammatory bowel disease Medical patient at bed rest Age 61-74 Arthroscopic surgery Major open surgery (> 45 min) Laparoscopic surgery (> 45 min) Malignancy Confined to bed (> 72 hours) Immobilizing plaster cast Central venous access Age >= 75 History of VTE Family history of VTE Factor V Leiden Prothrombin [id number] Lupus anticoagulant Anticardiolipin antibodies Elevated serum homocysteine Heparin-induced thrombocytopenia Other congenital or acquired thrombophilia Stroke (< 1 month) Elective arthroplasty Hip, pelvis, or leg fracture Acute spinal cord injury (< 1 month) Prophylaxis Regimen Total Risk Factor Score Risk Level Prophylaxis Regimen 0-1 Low Early ambulation 2 Moderate Order ONE of the following: *Sequential Compression Device (SCD) *Heparin 5000 units SQ BID 3-4 Higher Order ONE of the following medications: *Heparin 5000 units SQ TID *Enoxaparin/Lovenox 40 mg SQ daily (WT < 150 kg, CrCl > 30 mL/min) *Enoxaparin/Lovenox 30 mg SQ daily (WT < 150 kg, CrCl > 10-29 mL/min) *Enoxaparin/Lovenox 30 mg SQ BID (WT < 150 kg, CrCl > 30 mL/min) AND/OR *Sequential Compression Device (SCD) 5 or more Highest Order ONE of the following medications: *Heparin 5000 units SQ TID (Preferred with Epidurals) *Enoxaparin/Lovenox 40 mg SQ daily (WT < 150 kg, CrCl > 30 mL/min) *Enoxaparin/Lovenox 30 mg SQ daily (WT < 150 kg, CrCl > 10-29 mL/min) *Enoxaparin/Lovenox 30 mg SQ BID (WT < 150 kg, CrCl > 30 mL/min) AND *Sequential Compression Device (SCD) Assessment and Plan Assessment and Plan 77YO female with PMHx hypothyroidism, depression, HTN, and glaucoma p/w acute pancreatitis likely 2/2 gallstones in the absence of EtOH consumption. Lipase 56137, AST 1002, ALT 1103, TBili 1.4, and CT showing evidence of diverticulosis w/o inflammatory changes, gallstones in gallbladder without obstruction on admission. GI has been consulted and now surgery Problem List: (1) Acute pancreatitis ICD Codes: K85.90 - Acute pancreatitis without necrosis or infection, unspecified Status: Acute Plan: Pt with nausea, vomiting and epigastric pain, labs indicating Lipase 95961, elevated LFTs with AST 1002, ALT 1103, AP 166, Tbili 1.4, and CT abdomen/ pelvis showing diverticulosis of the transverse and descending colon without inflammation and gallstones visualized in the gallbladder without obstruction. -GI consulted--appreciate recs -NS IVF at 150ml/hr -Pain control --Morphine 2mg q3h IV PRN --Morphine 4mg q3h IV breakthru -NPO allowing sips/chips for now -Zofran 4mg IV q6h PRN nausea -Tylenol 650mg q6h fever today she and her labs were much better. she wishes to avoid all future problems similar to this and would be happy to consider cholecystectomy. she has had problems for months that are suggestive of gallstones as well (2) Elevated liver enzymes ICD Codes: R74.8 - Abnormal levels of other serum enzymes Status: Acute Plan: AST 1002 / ALT 1103 / TBili 1.4 on admission Plan as above (3) HTN (hypertension) ICD Codes: I10 - Essential (primary) hypertension Plan: Continue home medications -Amlodipine 5mg PO daily -Losartan 100mg PO daily -Start Hydralazine 10mg PO q4h PRN if SBP>170 OR DBP>100 (4) Hypothyroidism ICD Codes: E03.9 - Hypothyroidism, unspecified Status: Chronic Plan: Continue home dose Levothyroxine 100mcg daily (5) Anxiety and depression ICD Codes: F41.8 - Other specified anxiety disorders Status: Chronic Plan: Continue home meds -Escitalopram 20mg daily -Xanax 0.25mg q6h PRN (6) Glaucoma ICD Codes: H40.9 - Unspecified glaucoma Status: Chronic Plan: Continue her home glaucoma meds--she follows with an ophthomologist -Brimonidine Opth Drops (Brimonidine Tartrate) 0.2% Soln 1 Drop EACH EYE BID -Timolol Opth Drops 0.5 % Soln 1 Drop EACH EYE BID -Travatan Z Opth Drops (Travoprost) 0.004 % Soln 1 Drop EACH EYE HS (7) FEN/GI/PPx Status: Acute Plan: Fluids: Start NS IVF at 150ml/hr Electrolytes: wnl; will monitor daily and replete as necessary Nutrition: NPO with sips and chips allowed for now. consider increasing to clear liquids as she is so much better GI: Protonix 40mg daily PPx: SCDs bilaterally for now Tylenol 650mg q6h for fever - use sparingly due to elevated LFTs -Continue home dose ASA 81mg chew daily Problem Qualifiers (1) Acute pancreatitis: (2) HTN (hypertension): Qualified Codes: I10 - Essential (primary) hypertension (3) Hypothyroidism: Qualified Codes: E03.9 - Hypothyroidism, unspecified (4) Glaucoma: Qualified Codes: H40.9 - Unspecified glaucoma Ana Aguirre MD May 29, 2017 09:40
[2017-05-29] MEDS ORDERED: PNEUMOCOCCAL POLYVALENT INJ 25 MCG/0.5 ML SYR IM ONE (10:00)
[2017-05-29 14:40] LABS: HEPATITIS A AB IGM NEGATIVE (NEGATIVE); HEPATITIS B CORE AB IGM NEGATIVE (NEGATIVE)
--- NOTE | 2017-05-29 15:02 | EKG ---
Date Performed: 05/28/2017 Time Performed: 10:29:24 PTAGE: 77 years EKG: Sinus rhythm RIGHT BUNDLE BRANCH BLOCK NO PREVIOUS TRACING DOCTOR: Adarsh Easley Interpretating Date/Time 05/29/2017 15:01:16
--- NOTE | 2017-05-29 16:52 | HHI.GIFU ---
Subjective Remarks Pt resting in bed. Reports abdominal pain was worse earlier, received a lot of relief with Morphine. Denies nausea, vomiting. (Shira Plaza) Objective Vitals I&O Vital Signs Date Time Temp Pulse Resp B/P (MAP) Pulse Ox O2 Delivery O2 Flow Rate FiO2 05/29/17 15:46 98.6 67 18 168/66 (100) 95 05/29/17 10:56 98.0 62 18 154/68 (96) 93 05/29/17 08:54 95 05/29/17 08:14 97.8 73 18 161/62 (95) 92 05/29/17 07:00 66 05/29/17 02:20 98.3 66 18 158/71 (100) 96 05/28/17 23:00 98.4 72 16 158/68 (98) 96 05/28/17 20:00 98.2 63 18 164/74 (104) 94 05/28/17 17:30 98.3 62 18 178/71 (106) 93 I/O 05/28/17 05/28/17 05/28/17 05/29/17 05/29/17 05/29/17 07:00 15:00 23:00 07:00 15:00 23:00 Intake Total 120 ml 1000 ml Balance 120 ml 1000 ml Intake Oral 120 ml IV Total 1000 ml # Voids 1 1 Laboratory Laboratory Tests Test 05/29/17 05:36 Blood Urea Nitrogen 18 Creatinine 0.94 Random Glucose 82 Total Protein 6.3 Albumin 3.1 Calcium Level 8.5 Alkaline Phosphatase 154 Aspartate Amino Transf (AST/SGOT) 337 Alanine Aminotransferase (ALT/SGPT) 697 Total Bilirubin 0.5 Sodium Level 145 Potassium Level 3.7 Chloride Level 108 Carbon Dioxide Level 26.9 Anion Gap 10 Estimat Glomerular Filtration Rate 58 Lipase 1032 Hepatitis A IgM Antibody NEGATIVE Hepatitis B Surface Antigen NEGATIVE Hepatitis B Core IgM Antibody NEGATIVE Hepatitis C Antibody NEGATIVE Imaging Last Impressions Abdomen/Pelvis CT 05/28/17 1059 Signed Impressions: Service Date/Time: Sunday, May 28, 2017 12:44 - CONCLUSION: 1. Scattered diverticulosis of the descending and sigmoid colon without inflammatory changes. 2. 1.9 cm partially calcified left adnexal cyst. 3. Multiple faint gallstones in the gallbladder. No biliary tract obstruction.. 4. No acute pathology. Bob Henderson MD Chest X-Ray 05/28/17 1058 Signed Impressions: Service Date/Time: Sunday, May 28, 2017 11:12 - CONCLUSION: No acute intrathoracic disease. Bob Henderson MD Cholangiopancreatography MRI 05/28/17 0000 Signed Impressions: Service Date/Time: Sunday, May 28, 2017 20:01 - CONCLUSION: 1. Cholelithiasis with mild gallbladder wall thickening. 2. There is mild dilatation of the common hepatic duct and common bile duct measuring 9 mm and 7 mm, respectively. However, no distal obstructing stone or mass is identified. Cuco Mccray MD Physical Exam HEENT: Normocephalic; atraumatic CHEST: Even/unlabored CARDIAC: RRR ABDOMEN: Soft, nondistended, diffuse tenderness, worse on left side, bowel sounds active EXTREMITIES: No clubbing, cyanosis, or edema. SKIN: Normal; no rash; no jaundice. FIXED INTEREST DEALER: No focal deficits; alert and oriented times three. (Shira Plaza) Assessment and Plan Plan ASSESSMENT - abd pain, n/v, elevated LFTs - pancreatitis, likely 2/2 gallstone. pt denies etoh. CT showed gallstones, no biliary obstruction. lipase > 14,000. AST 1002, ALT 1103 ALP 166 Tbil 1.4. will get MRCP (05/29) --> Pt reports abdominal pain worse earlier, much improvement after receiving morphine. S/P MRCP yesterday --> Cholelithiasis with mild gallbladder wall thickening. There is mild dilations of the common hepatic duct and common bile duct measuring 9mm and 7mm, respectively. However, no distal obstructing stone or mass is identified. LFTs improving significantly today as well as lipase. GS has been consulted, pending report. PLAN - IVF - Pain control - Monitor labs (LFTs and lipase) - GS consult appreciated - OK for clear liquids from GI perspective, pending GS consult - Further recommendations based on clinical course and results of above Pt has been seen and examined by myself and Dr. Blanchard and this note is written on his behalf (Shira Plaza) Physician Comments Seen and examined, plan as above. Resolving pancreatitis likely secondary to stone passage. For cholecystectomy. Nothing to add at this point from GI point of view. Will S/O for now, please notify us if needed. (Sonia Blanchard MD) Shira Plaza May 29, 2017 16:52 Sonia Blanchard MD May 30, 2017 09:24
--- NOTE | 2017-05-29 17:45 | MB ---
cc: Denis Hutchins MD DATE OF CONSULT: 05/29/2017 REASON FOR CONSULTATION: Gallstone pancreatitis. HISTORY OF PRESENT ILLNESS: Ms. Mcintyre is a very pleasant 77-year-old female who presented to the hospital on 05/28/2017 with a complaint of abdominal pain associated with nausea and vomiting. Her initial pain was a 7/10. It was in the mid epigastric region. She reports she had previous pain similar to this but not as severe. She was worked up and found to have marked elevation of her liver function tests, as well as her lipase. She underwent extensive workup and evaluation and was found to have presumed gallstone pancreatitis. The patient was followed clinically and she improved. Surgical consultation was requested for consideration of cholecystectomy to prevent future episodes. The patient does report previous episodes of epigastric and right upper quadrant pain after eating certain meals. She states that it would usually subside on it's own and was not significant enough to seek medical attention. Since being hospitalized, she has started to feel much better. Her nausea and vomiting has resolved and she has been tolerating a little bit of sips of liquids. She denies any fever or chills. She denies any change in her bowel or bladder habits. PAST MEDICAL HISTORY: Includes hypertension, hypothyroidism and glaucoma. She also has chronic back pain. PAST SURGICAL HISTORY: Includes a hysterectomy and an appendectomy many years ago. MEDICATIONS: Include amlodipine, losartan, omeprazole, alprazolam, aspirin, Synthroid, Travatan, timolol and brimonidine drops and escitalopram. ALLERGIES: SHE HAS AN ALLERGY TO SULFA. SOCIAL HISTORY: She does not smoke or drink. She lives here locally with her son and his . FAMILY HISTORY: Remarkable for coronary artery disease and she reports her maternal aunt had breast cancer. REVIEW OF SYSTEMS: Please see HPI. PHYSICAL EXAMINATION: VITAL SIGNS: Temperature is 98, pulse is 67, blood pressure 160/60, respiratory rate 20. GENERAL: This is an obese elderly female, watching television, in no distress. HEENT: Pupils equal, round and reactive to light. Sclerae are white. Oropharynx is clear and moist. NECK: Supple. No masses. LUNGS: Clear to auscultation bilaterally. HEART: S1, S2, no murmur. ABDOMEN: Soft, minimally tender. No rebound or guarding. No abdominal masses. She has a right lower quadrant incision and a low transverse incision. EXTREMITIES: Free range of motion x 4. NEUROLOGIC: Alert and oriented x 3. LABORATORY STUDIES: White blood cell count yesterday was 6, hemoglobin 12, platelet count 238. Her lab work on admission, electrolytes were all within normal limits. On admission, her total bilirubin was 1.4. It is now 0.5. Her AST was 1002, it is now 337. Her ALT was 1103, it now 697. Her alkaline phosphatase was 166, it is now 154. Her lipase on admission was 14,684. Today it is 1032. IMAGING STUDIES: The patient had a CT of the abdomen and pelvis, which demonstrated some gallstones. No significant pancreatitis was noted by CT criteria. Her MRCP demonstrated gallstones with some gallbladder wall thickening and slight dilatation of the common bile duct at 9 mm. No stone or mass was seen obstructing the common bile duct. IMPRESSION: Probably gallstone pancreatitis. PLAN: I had a long discussion with the patient in her room regarding the timing of her cholecystectomy to prevent future episodes. I advised her that if her labs continue to trend downward and her symptoms continue to improve clinically that she would be a candidate for a laparoscopic cholecystectomy during this hospitalization. I advised her that if her clinical condition worsened or her LFTs fail to correct, she may require an ERCP first to clear to the common bile duct and ensure no stones are present. We will tentatively schedule the patient for tomorrow for surgery pending her LFTs and her clinical exam in the morning. If everything corrects, we will plan for the cholecystectomy tomorrow. We also discussed outpatient cholecystectomy but the patient requested that if the surgery could be done while she is here, she would prefer that. Risks and benefits of laparoscopic cholecystectomy with possible open cholecystectomy was discussed with her in detail. She expressed understanding and agreed to sign consents. MD FELTON Lora/JOSEMANUEL , 05:10 PM , 05:43 PM
[2017-05-29] MEDS: LATANOPROST 0.005% OPHT SOLN 2.5 ML BTL EACH EYE SCH (20:55)
[2017-05-30] VITALS (21 sets, daily range): BP systolic 118–158; BP diastolic 56–66; PULSE 56–77; RESP 16–18; TEMP 98–98.7; O2SAT 91–95
[2017-05-30] MEDS: MORPHINE SULFATE 4 MG/ML INJ SQ PRN (00:18)
[2017-05-30] MEDS: SODIUM CHLOR 0.9% 1000 ML INJ 1,000 ML IV SCH ×3 (04:14→19:26)
[2017-05-30] MEDS: LEVOTHYROXINE SODIUM 100 MCG TAB PO SCH (04:16)
[2017-05-30 06:26] LABS: HEMATOCRIT 33.6 % (35.0-46.0); HEMOGLOBIN 11.2 GM/DL (11.6-15.3); MEAN CELL VOLUME 93.5 FL (80.0-100.0); MEAN CORPUSCULAR HEMOGLOBIN 31.2 PG (27.0-34.0); MEAN CORPUSCULAR HGB CONC 33.4 % (32.0-36.0); MEAN PLATELET VOLUME 9.6 FL (7.0-11.0); PLATELET COUNT 165 TH/MM3 (150-450); RED BLOOD COUNT 3.59 MIL/MM3 (4.00-5.30); RED CELL DISTRIBUTION WIDTH 14.2 % (11.6-17.2)
[2017-05-30 07:00] LABS: ALT (GPT) 439 U/L (10-53); AST (GOT) 124 U/L (15-37); BICARBONATE 21.5 MEQ/L (21.0-32.0); BLOOD UREA NITROGEN 17 MG/DL (7-18); CALCIUM 8.7 MG/DL (8.5-10.1); CHLORIDE 108 MEQ/L (98-107); CREATININE 0.79 MG/DL (0.50-1.00); GLOMERULAR FILTRATION RATE 71 ML/MIN (>89); GLUCOSE,RANDOM 60 MG/DL (74-106); SODIUM (NA) 139 MEQ/L (136-145)
[2017-05-30 07:03] LABS: ALKALINE PHOSPHATASE 128 U/L (45-117); TOTAL BILIRUBIN ADULT 0.5 MG/DL (0.2-1.0); TOTAL PROTEIN 6.2 GM/DL (6.4-8.2)
--- NOTE | 2017-05-30 08:27 | HHI.FPPN ---
Subjective Remarks Patient is doing better this morning. Her pain is controlled with medications. She has not yet had a bowel movement but is passing gas. She denies fever, chills, nausea, vomiting, chest pain, shortness of breath. She is looking forward to having surgery later today. Per nursing, surgery is likely to happen around 11 AM. (Phill Harvey MD, R3) Objective Vitals Vital Signs Date Time Temp Pulse Resp B/P (MAP) Pulse Ox O2 Delivery O2 Flow Rate FiO2 05/30/17 08:13 98.4 70 18 154/66 (95) 91 05/30/17 05:20 71 05/30/17 05:15 70 05/30/17 04:12 73 18 146/56 (86) 92 05/30/17 04:04 67 05/30/17 02:51 71 05/30/17 02:00 68 05/30/17 01:00 70 05/30/17 00:53 16 05/30/17 00:04 98.7 77 16 152/58 (89) 95 05/29/17 23:00 70 05/29/17 22:00 72 05/29/17 21:00 72 05/29/17 20:49 95 05/29/17 20:30 80 20 160/56 (90) 94 05/29/17 20:00 86 05/29/17 19:00 64 05/29/17 15:46 98.6 67 18 168/66 (100) 95 05/29/17 10:56 98.0 62 18 154/68 (96) 93 05/29/17 08:54 95 I/O 05/29/17 05/29/17 05/29/17 05/30/17 05/30/17 05/30/17 07:00 15:00 23:00 07:00 15:00 23:00 Intake Total 120 ml 1000 ml Balance 120 ml 1000 ml Intake Oral 120 ml IV Total 1000 ml # Voids 1 5 1 # Bowel Movements 0 (Phill Harvey MD, R3) Result Diagram: 05/30/17 0540 05/30/17 0540 Objective Remarks GENERAL: This is a well-nourished, well-developed patient, no acute distress. SKIN: No rashes, ecchymoses or lesions. Cool and dry. HEAD: Atraumatic. Normocephalic. EYES: Pupils equal round and reactive. Extraocular motions intact. No scleral icterus. No injection or drainage. ENT: Nose without bleeding, purulent drainage or septal hematoma. Airway patent. NECK: Trachea midline. CARDIOVASCULAR: Regular rate and rhythm without murmurs, gallops, or rubs. RESPIRATORY: Clear to auscultation. Breath sounds equal bilaterally. No wheezes , rales, or rhonchi. GASTROINTESTINAL: Abdomen soft, non-tender, nondistended. No hepato-splenomegaly , or palpable masses. No guarding. MUSCULOSKELETAL: Extremities without clubbing, cyanosis, or edema. No joint tenderness, effusion, or edema noted. No calf tenderness. Negative Homans sign bilaterally. NEUROLOGICAL: Awake and alert. Cranial nerves II through XII intact. Motor and sensory grossly within normal limits. Five out of 5 muscle strength in all muscle groups. Normal speech. (Phill Harvey MD, R3) A/P Assessment and Plan 77YO female with PMHx hypothyroidism, depression, HTN, and glaucoma p/w acute pancreatitis secondary to gallstones. GI and surgery were consulted. Cholecystectomy planned for today Discharge Planning Pending surgery (Phill Harvey MD, R3) Attending Attestation Patient seen and examined. Case reviewed and discussed with the resident team. Agree with plan of care as discussed with me and documented in the resident note. doing well as her stone has passed (Ana Aguirre MD) Problem List: (1) Acute pancreatitis ICD Codes: K85.90 - Acute pancreatitis without necrosis or infection, unspecified Status: Acute Plan: GI consulted Surgery consulted Plan for cholecystectomy today Clinically improving. Labs are improving. Continue pain control Diet per surgery (2) Elevated liver enzymes ICD Codes: R74.8 - Abnormal levels of other serum enzymes Status: Acute Plan: Improving From gallstone pancreatitis (3) HTN (hypertension) ICD Codes: I10 - Essential (primary) hypertension Plan: Continue home medications -Amlodipine 5mg PO daily -Losartan 100mg PO daily -Start Hydralazine 10mg PO q4h PRN if SBP>170 OR DBP>100 (4) Hypothyroidism ICD Codes: E03.9 - Hypothyroidism, unspecified Status: Chronic Plan: Continue home dose Levothyroxine 100mcg daily (5) Anxiety and depression ICD Codes: F41.8 - Other specified anxiety disorders Status: Chronic Plan: Continue home meds -Escitalopram 20mg daily -Xanax 0.25mg q6h PRN (6) Glaucoma ICD Codes: H40.9 - Unspecified glaucoma Status: Chronic Plan: Continue her home glaucoma meds--she follows with an ophthomologist -Brimonidine Opth Drops (Brimonidine Tartrate) 0.2% Soln 1 Drop EACH EYE BID -Timolol Opth Drops 0.5 % Soln 1 Drop EACH EYE BID -Travatan Z Opth Drops (Travoprost) 0.004 % Soln 1 Drop EACH EYE HS (7) FEN/GI/PPx Status: Acute Plan: Fluids:continue NS IVF at 150ml/hr Electrolytes: wnl; will monitor daily and replete as necessary Nutrition: per surgery GI: Protonix 40mg daily PPx: SCDs bilaterally for now, holding anticoagulation pending surgery today Tylenol 650mg q6h for fever - use sparingly due to elevated LFTs -Continue home dose ASA 81mg chew daily (Phill Harvey MD, R3) Problem Qualifiers (1) Acute pancreatitis: (2) HTN (hypertension): Qualified Codes: I10 - Essential (primary) hypertension (3) Hypothyroidism: Qualified Codes: E03.9 - Hypothyroidism, unspecified (4) Glaucoma: Qualified Codes: H40.9 - Unspecified glaucoma Phill Harvey MD, R3 May 30, 2017 08:27 Ana Aguirre MD May 31, 2017 13:06
[2017-05-30] MEDS: ASPIRIN 81 MG CHEW TAB CHEW SCH (09:00)
[2017-05-30] MEDS: BRIMONIDINE TARTRATE 0.2% OPHT SOLN 5 ML BTL EACH EYE SCH ×2 (09:00→20:09)
[2017-05-30] MEDS: TIMOLOL MALEATE 0.5% OPHT SOLN 5 ML BTL EACH EYE SCH ×2 (09:00→20:09)
[2017-05-30] MEDS: DOCUSATE SODIUM 50 MG/SENNA 8.6 MG TAB PO SCH ×2 (09:21→20:05)
[2017-05-30] MEDS: LOSARTAN 50 MG TAB PO SCH (09:21)
[2017-05-30] MEDS: SODIUM CHLORIDE 0.9% FLUSH 10 ML FLUSH IV FLUSH SCH ×2 (09:21→20:09)
[2017-05-30] MEDS: amLODIPine BESYLATE 5 MG TAB PO SCH (09:21)
[2017-05-30] MEDS: ESCITALOPRAM OXALATE 20 MG TAB PO SCH (09:21)
[2017-05-30] MEDS: PANTOPRAZOLE SOD 40 MG DELAYED RELEASE TAB PO SCH (09:21)
[2017-05-30] MEDS ORDERED: METOPROLOL TARTRATE 25 MG TAB PO PRN (11:45)
[2017-05-30] MEDS ORDERED: LACTATED RINGER'S 1000 ML IV PRN (11:45)
[2017-05-30] MEDS ORDERED: CHLORHEXIDINE GLUCONATE 2 % 1 PACK (2 CLOTHS) TOPICAL PRN (11:45)
[2017-05-30] MEDS ORDERED: SODIUM CHLORID 0.9% 500 ML IV PRN (11:45)
[2017-05-30] MEDS ORDERED: POVIDONE IODINE 5% (ANTISEPSIS KIT) 4 APPLICATIONS EACH NARE PRN (11:45)
[2017-05-30] MEDS ORDERED: LACTATED RINGER'S 1000 ML INJ 1,000 ML IV ONE (12:00)
[2017-05-30] MEDS ORDERED: ROCURONIUM INJ 50 MG/5 ML SYRINGE IV PUSH ONE (12:00)
[2017-05-30] MEDS ORDERED: ePHEDrine/NS 25 MG/5 ML SYRINGE IV ONE (12:00)
[2017-05-30] MEDS ORDERED: NEOSTIGMINE 5 MG/5 ML SYRINGE IV PUSH ONE (12:00)
[2017-05-30] MEDS ORDERED: GLYCOPYRROLATE 1 MG/5 ML SYRINGE IV PUSH ONE (12:00)
[2017-05-30] MEDS ORDERED: LIDOCAINE HCL 1% PF 5 ML SYRINGE OTHER ONE (12:00)
[2017-05-30] MEDS ORDERED: PROPOFOL 200 MG/20 ML AMP IV ONE (12:00)
[2017-05-30] MEDS ORDERED: MIDAZOLAM HCL 2 MG/2 ML VIAL ONE (12:01)
[2017-05-30] MEDS ORDERED: ACETAMINOPHEN 1000 MG/100 ML 100 ML IV ONE (12:01)
[2017-05-30] MEDS ORDERED: FAMOTIDINE 20 MG/2 ML VIAL ONE (12:02)
[2017-05-30] MEDS ORDERED: BUPIVACAINE/EPINEPHRINE 0.5% PF 30 ML VIAL ONE (13:48)
[2017-05-30] MEDS ORDERED: ceFAZolin 2 GM PREMIX 50 ML ONE (13:51)
--- NOTE | 2017-05-30 13:58 | HHI.PR ---
cc: Orlando Romero MD Immediate Post Op Note Procedure Date: May 30, 2017 Pre Op Diagnosis: (1) Gallstones (2) Abnormal findings on imaging of biliary tract (3) Pancreatitis (4) Elevated liver enzymes (5) Acute pancreatitis Post Op Diagnosis: (1) Pancreatitis (2) Acute pancreatitis (3) Gallstones (4) Abnormal findings on imaging of biliary tract (5) S/P laparoscopic cholecystectomy Surgeon: Orlando Romero Fixed Income Director(s): Refer to or record Procedure: Laparoscopic cholecystectomy Findings: Adhesions and inflamed gallbladder Complications: Non- Specimen(s) removed: Gallbladder Estimated blood loss: Minimum Anesthesia: General Drains: None IVF Patient to: PACU Patient Condition: Good Implant/Devices: SEE IMPLANT LOG (if applicable) Date/Time of Procedure: SEE SURGICAL CARE RECORD Orlando Romero MD May 30, 2017 13:58
[2017-05-30] MEDS ORDERED: NORC5TAB PO (14:06)
[2017-05-30] MEDS ORDERED: *ONDANSETRON 4 MG VIAL PERIprocedural Use ONLY ONE (14:18)
--- NOTE | 2017-05-30 14:21 | MP ---
cc: Orlando Romero MD DATE OF OPERATION: 05/30/2017 PREOPERATIVE DIAGNOSIS: Cholelithiasis, cholecystitis, history of gallstone pancreatitis. POSTOPERATIVE DIAGNOSIS: Cholelithiasis, cholecystitis, history of gallstone pancreatitis. PROCEDURE: Laparoscopic cholecystectomy. Laparoscopic lysis of adhesions ANESTHESIA: General. SURGEON: Orlando Romero MD INDICATION: This is a pleasant 77-year-old female who was admitted to the hospital a few days ago. She had a bout of gallstone pancreatitis. She has recovered from that. Plans were made for a cholecystectomy. Originally, Dr. Hutchins was planning to do this procedure, but because of OR delays he was unable to be available at the delay time in the operating room, so he has asked me to proceed with the case. The patient agreed. I had met the patient in the preop holding area. Plans were made for above. DESCRIPTION OF PROCEDURE: The patient was taken to the operating room, placed in the supine position. After anesthesia, her abdomen was prepped with Betadine. We did a time-out. She had been given antibiotics. Making an incision just below the umbilicus, a Veress needle was inserted and a saline load test was performed at the umbilicus. A 10 mm trocar was introduced, cameras were introduced, 2 other working ports were placed, a 5 mm at the xiphoid, 5 mm in between the 2 previously placed ports. Gallbladder could be seen. It is obviously inflamed. She had some adhesions in the right upper quadrant. These were taken down with the electrocautery device. To gain access to the gallbladder and liver. We can clearly seen the gallbladder. It is obviously inflamed and dilated. I was able to grasp it superiorly and laterally, identifying the cyst duct which is somewhat enlarged. We doubly ligated after we assured there was no stone within the cystic duct. The cystic artery is seen and this is doubly ligated as well, transected. The gallbladder was then teased off the gallbladder bed. Unfortunately because of the friability of the gallbladder, there is a small tear and some bile leaks out, which is evacuated. No stones were spilled. We were able to dissect it free from the liver edge, place it in the Endocatch and pulled it out through the umbilical incision and passed off the field. We then irrigated with 1 L of saline, checked our dissection site. There is excellent hemostasis without biliary leakage. Liver is smooth. Peritoneal surfaces are smooth. She had some minor adhesions in the right lower quadrant. No gross abnormalities seen. The CO2 and irrigation solution was removed and then the 10 mm trocar at the umbilicus was closed with a 0 Vicryl and the skin at all 3 sites closed with a 4-0 Monocryl. Steri-Strips were applied, sterile bandage applied. Patient tolerated the procedure well, had no immediate postop complications. Orlando Romero MD JDB/TI , 01:44 PM , 02:20 PM MTDGavino
[2017-05-30] MEDS ORDERED: DO NOT ADM ANY ANTICOAGULANT DRUGS PRN (15:30)
[2017-05-30] MEDS: LATANOPROST 0.005% OPHT SOLN 2.5 ML BTL EACH EYE SCH (20:08)
[2017-05-31] VITALS (8 sets, daily range): BP systolic 164–172; BP diastolic 67–77; PULSE 61–88; RESP 16–18; TEMP 98–98.5; O2SAT 92–95
[2017-05-31] MEDS: SODIUM CHLOR 0.9% 1000 ML INJ 1,000 ML IV SCH ×2 (00:19→08:46)
[2017-05-31] MEDS: LEVOTHYROXINE SODIUM 100 MCG TAB PO SCH (04:01)
[2017-05-31] MEDS: MORPHINE SULFATE 4 MG/ML INJ SQ PRN ×3 (04:01→10:07)
[2017-05-31 07:03] LABS: AUTOMATED NEUTROPHIL # 6.5 TH/MM3 (1.8-7.7); BASOPHIL % 0.4 % (0.0-2.0); EOSINOPHIL # 0.1 TH/MM3 (0-0.4); EOSINOPHIL % 0.9 % (0.0-4.0); HEMATOCRIT 30.6 % (35.0-46.0); HEMOGLOBIN 10.5 GM/DL (11.6-15.3); LYMPH % 10.7 % (9.0-44.0); LYMPHOCYTE # 0.9 TH/MM3 (1.0-4.8); MEAN CELL VOLUME 93.1 FL (80.0-100.0); MEAN CORPUSCULAR HEMOGLOBIN 31.8 PG (27.0-34.0); MEAN CORPUSCULAR HGB CONC 34.2 % (32.0-36.0); MEAN PLATELET VOLUME 9.7 FL (7.0-11.0); MONO % 10.9 % (0.0-8.0); MONOCYTE # 0.9 TH/MM3 (0-0.9); NEUT % 77.1 % (16.0-70.0); PLATELET COUNT 163 TH/MM3 (150-450); RED BLOOD COUNT 3.29 MIL/MM3 (4.00-5.30); RED CELL DISTRIBUTION WIDTH 13.9 % (11.6-17.2); WHITE BLOOD COUNT 8.4 TH/MM3 (4.0-11.0)
[2017-05-31 07:17] LABS: ALBUMIN 2.9 GM/DL (3.4-5.0); AST (GOT) 68 U/L (15-37); BICARBONATE 26.1 MEQ/L (21.0-32.0); BLOOD UREA NITROGEN 14 MG/DL (7-18); CALCIUM 8.4 MG/DL (8.5-10.1); CHLORIDE 108 MEQ/L (98-107); GLOMERULAR FILTRATION RATE 61 ML/MIN (>89); GLUCOSE,RANDOM 92 MG/DL (74-106); SODIUM (NA) 141 MEQ/L (136-145)
[2017-05-31 07:21] LABS: ALKALINE PHOSPHATASE 116 U/L (45-117); ALT (GPT) 270 U/L (10-53); TOTAL BILIRUBIN ADULT 0.5 MG/DL (0.2-1.0); TOTAL PROTEIN 6.3 GM/DL (6.4-8.2)
[2017-05-31] MEDS: ASPIRIN 81 MG CHEW TAB CHEW SCH (09:00)
[2017-05-31] MEDS: amLODIPine BESYLATE 5 MG TAB PO SCH (09:00)
[2017-05-31] MEDS: BRIMONIDINE TARTRATE 0.2% OPHT SOLN 5 ML BTL EACH EYE SCH (09:00)
[2017-05-31] MEDS: DOCUSATE SODIUM 50 MG/SENNA 8.6 MG TAB PO SCH (09:00)
[2017-05-31] MEDS: TIMOLOL MALEATE 0.5% OPHT SOLN 5 ML BTL EACH EYE SCH (09:00)
[2017-05-31] MEDS: LOSARTAN 50 MG TAB PO SCH (09:00)
[2017-05-31] MEDS: PANTOPRAZOLE SOD 40 MG DELAYED RELEASE TAB PO SCH (09:00)
[2017-05-31] MEDS: SODIUM CHLORIDE 0.9% FLUSH 10 ML FLUSH IV FLUSH SCH (09:00)
[2017-05-31] MEDS: ESCITALOPRAM OXALATE 20 MG TAB PO SCH (09:00)
--- NOTE | 2017-05-31 09:11 | HHI.DCPOC ---
Discharge Care Plan Goals to Promote Your Health * To prevent worsening of your condition and complications, please take medications as prescribed. * To maintain your health at the optimal level, please follow up with your primary care doctor in [address] Romero, the surgeon, in 10 days. Directions to Meet Your Goals Take your medications as prescribed Follow your dietary instruction Follow activity as directed Keep your appointments as scheduled Take your immunizations and boosters as scheduled If your symptoms worsen call your PCP, if no PCP go to Urgent Care Center or Emergency Room Smoking is Dangerous to Your Health. Avoid second hand smoke Call the 24-hour hour crisis hotline for domestic abuse at Lew Ash MD R1 May 31, 2017 09:11
--- NOTE | 2017-05-31 09:42 | HHI.PR ---
cc: Orlando Romero MD Subjective Subjective Notes DAILY PROGRESS NOTE FOR SURGICAL ATTENDING, DR. ORLANDO ROMERO Resting in bed Feeling good; minimal pain Objective Vitals/I&O Vital Signs Date Time Temp Pulse Resp B/P (MAP) Pulse Ox O2 Delivery O2 Flow Rate FiO2 05/31/17 08:00 98.0 88 18 172/77 (108) 92 05/30/17 21:25 Nasal Cannula 3.00 Labs Laboratory Tests Test 05/31/17 05:48 White Blood Count 8.4 Red Blood Count 3.29 Hemoglobin 10.5 Hematocrit 30.6 Mean Corpuscular Volume 93.1 Mean Corpuscular Hemoglobin 31.8 Mean Corpuscular Hemoglobin Concent 34.2 Red Cell Distribution Width 13.9 Platelet Count 163 Mean Platelet Volume 9.7 Neutrophils (%) (Auto) 77.1 Lymphocytes (%) (Auto) 10.7 Monocytes (%) (Auto) 10.9 Eosinophils (%) (Auto) 0.9 Basophils (%) (Auto) 0.4 Neutrophils # (Auto) 6.5 Lymphocytes # (Auto) 0.9 Monocytes # (Auto) 0.9 Eosinophils # (Auto) 0.1 Basophils # (Auto) 0.0 CBC Comment DIFF FINAL Differential Comment Blood Urea Nitrogen 14 Creatinine 0.90 Random Glucose 92 Total Protein 6.3 Albumin 2.9 Calcium Level 8.4 Alkaline Phosphatase 116 Aspartate Amino Transf (AST/SGOT) 68 Alanine Aminotransferase (ALT/SGPT) 270 Total Bilirubin 0.5 Sodium Level 141 Potassium Level 4.0 Chloride Level 108 Carbon Dioxide Level 26.1 Anion Gap 7 Estimat Glomerular Filtration Rate 61 Radiology Last Impressions Abdomen/Pelvis CT 05/28/17 1059 Signed Impressions: Service Date/Time: Sunday, May 28, 2017 12:44 - CONCLUSION: 1. Scattered diverticulosis of the descending and sigmoid colon without inflammatory changes. 2. 1.9 cm partially calcified left adnexal cyst. 3. Multiple faint gallstones in the gallbladder. No biliary tract obstruction.. 4. No acute pathology. Bob Henderson MD Chest X-Ray 05/28/17 1058 Signed Impressions: Service Date/Time: Sunday, May 28, 2017 11:12 - CONCLUSION: No acute intrathoracic disease. Bob Henderson MD Cholangiopancreatography MRI 05/28/17 0000 Signed Impressions: Service Date/Time: Sunday, May 28, 2017 20:01 - CONCLUSION: 1. Cholelithiasis with mild gallbladder wall thickening. 2. There is mild dilatation of the common hepatic duct and common bile duct measuring 9 mm and 7 mm, respectively. However, no distal obstructing stone or mass is identified. Cuco Mccray MD Cardiovascular: Regular Lungs: Clear Abdomen: Other (lap sites c/d/i; minimally tender with palpation ) Extremities: No edema A/P Problem List: (1) S/P laparoscopic cholecystectomy ICD Codes: Z90.49 - Acquired absence of other specified parts of digestive tract Status: Acute (2) Abnormal findings on imaging of biliary tract ICD Codes: R93.2 - Abnormal findings on diagnostic imaging of liver and biliary tract (3) Gallstones ICD Codes: K80.20 - Calculus of gallbladder without cholecystitis without obstruction (4) Acute pancreatitis ICD Codes: K85.90 - Acute pancreatitis without necrosis or infection, unspecified Status: Acute (5) Hypothyroidism ICD Codes: E03.9 - Hypothyroidism, unspecified Status: Chronic Assessment and Plan 77 year old female POD1 lap juan carlos -Tolerating regular diet -Pain controlled -Okay to shower; pat incisions dry -Avoid heavy pushing pulling or lifting - alexys for [place] -Follow up with Dr. Romero June 13 at 8:40 AM Attending Statement NOTE FOR SURGICAL ATTENDING, DR. ORLANDO ROMERO I agree with above assessment and plan. The exam, history, and the medical decision-making described in the above note were completed with the assistance of the mid-level provider. I reviewed and agree with the findings presented. The following services were provided during this hospital visit: Chart data review, vital sign assessments/reviewing monitor data Review of consultations notes if present. Medication orders/review and/or management Ordering and/or reviewing lab tests Ordering and/or interpreting/reviewing x-rays and/or diagnostic studies Care of the patient and discussion of the patient with the care team Documentation time To help prompt me to consider important information that might be impacting today's encounter and assessment, information from prior notes written by myself or my colleagues may have been "brought forward/copy and pasted" into today's note. Problem Qualifiers (1) Acute pancreatitis: (2) Hypothyroidism: Qualified Codes: E03.9 - Hypothyroidism, unspecified Sonia Sanches/First iMchelle HOGAN May 31, 2017 09:42 Orlando Romero MD May 31, 2017 11:32
--- NOTE | 2017-05-31 11:02 | HHI.FPPN ---
Subjective Remarks NAEON. Ms Mcintyre feels well this morning and is ready to discharge. Is ambulating w/o dizziness, pain controlled, tolerating PO,voiding and passing flatus. Discussed taking anti-constipation medication on arrival home due to opioid pain medication. Denies CP, SOB, N/V/D, DVT pain. (Lew Ash MD R1) Objective Vitals Vital Signs Date Time Temp Pulse Resp B/P (MAP) Pulse Ox O2 Delivery O2 Flow Rate FiO2 05/31/17 10:11 18 05/31/17 08:00 98.0 88 18 172/77 (108) 92 05/31/17 05:08 67 05/31/17 03:57 98.5 66 18 164/67 (99) 95 05/31/17 03:22 16 05/31/17 03:06 61 05/31/17 01:45 68 16 92 05/31/17 01:00 82 05/31/17 00:00 62 05/31/17 00:00 70 05/30/17 23:00 56 05/30/17 22:00 58 05/30/17 21:25 94 Nasal Cannula 3.00 05/30/17 21:00 60 05/30/17 20:00 60 05/30/17 20:00 71 05/30/17 20:00 98.7 62 16 155/65 (95) 93 05/30/17 19:00 60 05/30/17 19:00 60 05/30/17 18:00 98.0 72 18 158/66 (96) 91 05/30/17 17:26 67 18 120/64 (82) 95 05/30/17 17:00 66 18 118/64 (82) 95 05/30/17 16:30 68 18 122/60 (80) 95 05/30/17 16:00 98.0 72 18 129/59 (82) 92 05/30/17 16:00 66 05/30/17 15:00 98.2 66 16 139/62 (87) 95 Nasal Cannula 3 05/30/17 14:45 68 16 147/66 (93) 95 Nasal Cannula 3 05/30/17 14:30 71 16 145/66 (92) 95 Nasal Cannula 3 05/30/17 14:15 72 17 152/67 (95) 95 Nasal Cannula 3 05/30/17 14:00 75 15 153/67 (95) 94 Nasal Cannula 3 05/30/17 13:45 98.0 79 15 164/67 (99) 94 Nasal Cannula 3 I/O 05/30/17 05/30/17 05/30/17 05/31/17 05/31/17 05/31/17 07:00 15:00 23:00 07:00 15:00 23:00 Intake Total 1025 ml 240 ml Output Total 20 ml Balance 1005 ml 240 ml Intake Oral 240 ml IV Total 900 ml Other 125 ml Output Urine Total 0 ml Estimated Blood Loss 20 ml # Voids 1 4 (Lew Ash MD R1) Result Diagram: 05/31/17 0548 05/31/17 0548 Objective Remarks GENERAL: This is a well-nourished, well-developed patient lying in bed in no acute distress. SKIN: No rashes, ecchymoses or lesions. Cool and dry. HEAD: Atraumatic. Normocephalic. EYES: Pupils equal round and reactive. Extraocular motions intact. No scleral icterus. No injection or drainage. ENT: Nose without bleeding, purulent drainage or septal hematoma. Airway patent. NECK: Trachea midline. CARDIOVASCULAR: Regular rate and rhythm without murmurs, gallops, or rubs. RESPIRATORY: Clear to auscultation. Breath sounds equal bilaterally. No wheezes , rales, or rhonchi. GASTROINTESTINAL: Abdomen soft, non-tender, nondistended. No hepato-splenomegaly , or palpable masses. No guarding. Normal BS. laparoscopic incisions c/d/i with no drainage. MUSCULOSKELETAL: Extremities without clubbing, cyanosis, or edema. No joint tenderness, effusion, or edema noted. No calf tenderness. Negative Homans sign bilaterally. NEUROLOGICAL: Awake and alert. Cranial nerves II through XII intact. Motor and sensory grossly within normal limits. Five out of 5 muscle strength in all muscle groups. Normal speech. Procedures Laparoscopic cholecystectomy 05/30/17 Laparoscopic lysis of adhesions 05/30/17 (Lew Ash MD R1) Urinary Catheter: No (Lew Ash MD R1) Vascular Central Line Catheter: No (Lew Ash MD R1) A/P Assessment and Plan 77YO female with PMHx hypothyroidism, depression, HTN, and glaucoma p/w acute pancreatitis secondary to gallstones. GI and surgery were consulted. Laparoscopic Cholecystectomy performed by Dr Romero 05/30/17. Seens and dw Dr Aguirre Discharge Planning Discharge home 05/31/17 (Lew Ash MD R1) Attending Attestation Patient seen and examined. Case reviewed and discussed with the resident team. Agree with plan of care as discussed with me and documented in the resident note. she is happy to go home (Ana Aguirre MD) Problem List: (1) Acute pancreatitis ICD Codes: K85.90 - Acute pancreatitis without necrosis or infection, unspecified Status: Acute Plan: GI consulted--performed MRCP Surgery consulted Laparoscopic cholecystectomy 05/30/17 Clinically improving. Labs are improving. Continue pain control Diet per surgery (2) Elevated liver enzymes ICD Codes: R74.8 - Abnormal levels of other serum enzymes Status: Acute Plan: Improving From gallstone pancreatitis (3) HTN (hypertension) ICD Codes: I10 - Essential (primary) hypertension Plan: Continue home medications -Amlodipine 5mg PO daily -Losartan 100mg PO daily -Start Hydralazine 10mg PO q4h PRN if SBP>170 OR DBP>100 (4) Hypothyroidism ICD Codes: E03.9 - Hypothyroidism, unspecified Status: Chronic Plan: Continue home dose Levothyroxine 100mcg daily (5) Anxiety and depression ICD Codes: F41.8 - Other specified anxiety disorders Status: Chronic Plan: Continue home meds -Escitalopram 20mg daily -Xanax 0.25mg q6h PRN (6) Glaucoma ICD Codes: H40.9 - Unspecified glaucoma Status: Chronic Plan: Continue her home glaucoma meds--she follows with an ophthomologist -Brimonidine Opth Drops (Brimonidine Tartrate) 0.2% Soln 1 Drop EACH EYE BID -Timolol Opth Drops 0.5 % Soln 1 Drop EACH EYE BID -Travatan Z Opth Drops (Travoprost) 0.004 % Soln 1 Drop EACH EYE HS (7) FEN/GI/PPx Status: Acute Plan: Fluids:PO fluids Electrolytes: wnl; will monitor daily and replete as necessary Nutrition: per surgery GI: Protonix 40mg daily PPx: SCDs bilaterally Tylenol 650mg q6h for fever - use sparingly due to elevated LFTs -Continue home dose ASA 81mg chew daily (Lew Ash MD R1) Problem Qualifiers (1) Acute pancreatitis: (2) HTN (hypertension): Qualified Codes: I10 - Essential (primary) hypertension (3) Hypothyroidism: Qualified Codes: E03.9 - Hypothyroidism, unspecified (4) Glaucoma: Qualified Codes: H40.9 - Unspecified glaucoma Lew Ash MD R1 May 31, 2017 11:02 Ana Aguirre MD May 31, 2017 13:07
--- NOTE | 2017-05-31 14:22 | HHI.DS ---
Discharge Summary Admission Date May 28, 2017 at 13:28 Discharge Date: May 31, 2017 Admitting Diagnosis Pancreatitis/elevated liver enzymes (1) Acute pancreatitis Diagnosis: Principal ICD Codes: K85.90 - Acute pancreatitis without necrosis or infection, unspecified Status: Acute (2) Elevated liver enzymes Diagnosis: Principal ICD Codes: R74.8 - Abnormal levels of other serum enzymes Status: Acute (3) S/P laparoscopic cholecystectomy Diagnosis: Principal ICD Codes: Z90.49 - Acquired absence of other specified parts of digestive tract Status: Acute (4) HTN (hypertension) Diagnosis: Secondary ICD Codes: I10 - Essential (primary) hypertension (5) Hypothyroidism Diagnosis: Secondary ICD Codes: E03.9 - Hypothyroidism, unspecified Status: Chronic (6) Anxiety and depression Diagnosis: Secondary ICD Codes: F41.8 - Other specified anxiety disorders Status: Chronic (7) Glaucoma Diagnosis: Secondary ICD Codes: H40.9 - Unspecified glaucoma Status: Chronic Consultants Gastroenterology General surgery Procedures MRCP 05/28/17 Laparoscopic cholecystectomy 05/30/17 Laparoscopic lysis of adhesions 05/30/17 Brief History Ms Mcintyre is a 77YO female w/PMHx hypothyroidism, HTN, and depression who presented with nausea and vomiting accompanied with 9/10 epigastric pain. She reports approximately 1-2 months of epigastric swelling and intermittent pain that she reports as feeling swollen in her epigastric area. The swollen feeling usually occurred with waking each morning. She also reported that about 20 minutes after she ate she would often have some pain for up to an hour. The night of admission, she had nausea and vomiting starting around 8 or 8:30PM. She had 2x emesis. The first episode was large volume followed by the second episode 10 minutes later which was less volume. Both episodes were non-bloody but were bilious. She describes the pain as a feeling of being sore and achy with marked improvement from 9/10 to 5-6/10 s/p morphine. She says pain is made worse during a BM. Reports she had one other less acute attack about 2 years ago. Denies CP, SOB, DVT pain and sami colored stools. Reports no other sxs except as indicated in ROS. Overnight, she felt improved and has much less pain today. Her labs are remarkably improved with a big drop in her lipase and LFTs. Her imaging shows some dilation of her ducts but no acute obstruction and stones in her gallbladder. She is agreeable to talk to surgery today. CBC/BMP: 05/31/17 0548 05/31/17 0548 Significant Findings Laboratory Tests Test 05/29/17 05:36 05/30/17 05:40 05/31/17 05:48 Total Protein 6.3 GM/DL (6.4-8.2) 6.2 GM/DL (6.4-8.2) 6.3 GM/DL (6.4-8.2) Albumin 3.1 GM/DL (3.4-5.0) 3.0 GM/DL (3.4-5.0) 2.9 GM/DL (3.4-5.0) Alkaline Phosphatase 154 U/L (45-117) 128 U/L (45-117) Aspartate Amino Transf (AST/SGOT) 337 U/L (15-37) 124 U/L (15-37) 68 U/L (15-37) Alanine Aminotransferase (ALT/SGPT) 697 U/L (10-53) 439 U/L (10-53) 270 U/L (10-53) Chloride Level 108 MEQ/L (98-107) 108 MEQ/L (98-107) 108 MEQ/L (98-107) Estimat Glomerular Filtration Rate 58 ML/MIN (>89) 71 ML/MIN (>89) 61 ML/MIN (>89) Lipase 1032 U/L (73-393) Red Blood Count 3.59 MIL/MM3 (4.00-5.30) 3.29 MIL/MM3 (4.00-5.30) Hemoglobin 11.2 GM/DL (11.6-15.3) 10.5 GM/DL (11.6-15.3) Hematocrit 33.6 % (35.0-46.0) 30.6 % (35.0-46.0) Random Glucose 60 MG/DL (74-106) Neutrophils (%) (Auto) 77.1 % (16.0-70.0) Monocytes (%) (Auto) 10.9 % (0.0-8.0) Lymphocytes # (Auto) 0.9 TH/MM3 (1.0-4.8) Calcium Level 8.4 MG/DL (8.5-10.1) Imaging Last Impressions Abdomen/Pelvis CT 05/28/17 1059 Signed Impressions: Service Date/Time: Sunday, May 28, 2017 12:44 - CONCLUSION: 1. Scattered diverticulosis of the descending and sigmoid colon without inflammatory changes. 2. 1.9 cm partially calcified left adnexal cyst. 3. Multiple faint gallstones in the gallbladder. No biliary tract obstruction.. 4. No acute pathology. Bob Henderson MD Chest X-Ray 05/28/17 1058 Signed Impressions: Service Date/Time: Sunday, May 28, 2017 11:12 - CONCLUSION: No acute intrathoracic disease. Bob Henderson MD Cholangiopancreatography MRI 05/28/17 0000 Signed Impressions: Service Date/Time: Sunday, May 28, 2017 20:01 - CONCLUSION: 1. Cholelithiasis with mild gallbladder wall thickening. 2. There is mild dilatation of the common hepatic duct and common bile duct measuring 9 mm and 7 mm, respectively. However, no distal obstructing stone or mass is identified. Cuco Mccray MD PE at Discharge GENERAL: This is a well-nourished, well-developed patient lying in bed in no acute distress. SKIN: No rashes, ecchymoses or lesions. Cool and dry. HEAD: Atraumatic. Normocephalic. EYES: Pupils equal round and reactive. Extraocular motions intact. No scleral icterus. No injection or drainage. ENT: Nose without bleeding, purulent drainage or septal hematoma. Airway patent. NECK: Trachea midline. CARDIOVASCULAR: Regular rate and rhythm without murmurs, gallops, or rubs. RESPIRATORY: Clear to auscultation. Breath sounds equal bilaterally. No wheezes , rales, or rhonchi. GASTROINTESTINAL: Abdomen soft, non-tender, nondistended. No hepato-splenomegaly , or palpable masses. No guarding. Normal BS. laparoscopic incisions c/d/i with no drainage. MUSCULOSKELETAL: Extremities without clubbing, cyanosis, or edema. No joint tenderness, effusion, or edema noted. No calf tenderness. Negative Homans sign bilaterally. NEUROLOGICAL: Awake and alert. Cranial nerves II through XII intact. Motor and sensory grossly within normal limits. Five out of 5 muscle strength in all muscle groups. Normal speech. Hospital Course Ms Mcintyre was admitted with nausea, vomiting and abdominal pain with Lipase [id number], elevated LFTs, and CT abdomen/pelvis showing gallstones in the gallbladder but not obstructing the cystic duct. GI was initially consulted with for gallstone pancreatitis and concern for a gallstone obstructing her biliary tree; however, following a normal MRCP with no stone obstructing the biliary tree on 05/29/17, and Lipase that dropped to roughly 1000 overnight, the believe was that an obstructing stone had passed. General surgery was then consulted due to high risk for recurrence. The pt had indicated she had similar sxs approximately 2 months before the current gallstone attack. Dr Hutchins from General surgery spoke to the pt who agreed to elective laparoscopic cholecystectomy. Dr Romero performed the operation on 05/30/17. The pt did well overnight with pain controlled, tolerating PO, ambulating, voiding and flatus prior to discharge. Surgery signed off on 05/31/17 and the pt was discharged home afebrile, VSS, and hemodynamically stable. She will follow up with the surgeon in 10days and with her primary doctor in 1 week. Pt Condition on Discharge: Stable Discharge Disposition: Discharge Home Discharge Instructions DIET: Follow Instructions for: As Tolerated, No Restrictions Activities you can perform: Weight Bearing as [place] Activities to Avoid: Lifting/Bending, Strenuous Activity Follow up Referrals: PCP Follow-up - 1 Week Surgical - 06/13/17 @ [facility] Sur[facility]/Trauma June 13 at 8:40 AM New Medications: Hydrocodone-Acetaminophen ([place]) 5 Mg-325 Mg Tab 1 TAB PO Q6H PRN for PAIN, #20 TAB 0 Refills Continued Medications: Alprazolam (Alprazolam) 0.25 Mg Tab 0.25 MG PO Q6H PRN for ANXIETY, TAB 0 Refills Amlodipine (Amlodipine) 5 Mg Tab 5 MG PO DAILY for Blood Pressure Management, #30 TAB 0 Refills Aspirin (Aspirin) 81 Mg Chew 81 MG CHEW DAILY, TAB 0 Refills Brimonidine Opth Drops (Brimonidine Opth Drops) 0.2% Soln 1 DROP EACH EYE BID for Intraocular pressure, #1 BOTTLE 0 Refills Escitalopram (Escitalopram) 20 Mg Tab 20 MG PO DAILY, #30 TAB 0 Refills Levothyroxine (Levothyroxine) 100 Mcg Tab 100 MCG PO DAILY for Thyroid, #30 TAB 0 Refills Losartan (Losartan) 100 Mg Tab 100 MG PO DAILY for Blood Pressure Management, #30 TAB 0 Refills Omeprazole (Omeprazole) 20 Mg Tab 40 MG PO DAILY, #30 TAB 0 Refills Timolol Opth Drops (Timolol Opth Drops) 0.5 % Soln 1 DROP EACH EYE BID for Glaucoma, #1 BOTTLE 0 Refills Travoprost Opth Drops (Travatan Z Opth Drops) 0.004 % Soln 1 DROP EACH EYE HS for Glaucoma, #1 BOTTLE 0 Refills Lew Ash MD R1 May 31, 2017 14:22
== END 2017-05-31 10:44 | disposition home or self-care (01) | DRG 418 ==
LOC: NEPC 10:03 → NEDA 13:28 → HCIN 17:27
PROVIDERS: ADMIT Family Medicine; ATTEND Family Medicine
PROC: 0FT44ZZ Resection of Gallbladder, Percutaneous Endoscopic Approach (ICD-10-PCS; principal; 2017-05-30 12:26)
DX: K85.10 Biliary acute pancreatitis without necrosis or infection (principal); K80.10 Calculus of gallbladder with chronic cholecystitis without obstruction; I10 Essential (primary) hypertension; H40.9 Unspecified glaucoma; F32.9 Major depressive disorder, single episode, unspecified; E03.9 Hypothyroidism, unspecified; F41.9 Anxiety disorder, unspecified; R74.8 Abnormal levels of other serum enzymes
CPT/HCPCS: 71045; 74177; 74181; 76377; 76937; 80053; 80074; 82550; 82552; 82948; 83690; 84484; 85025; 85027; 88304; 93005; 96374; 96375; J0131; J0690; J2250; J2270; J2405; J2710; J3010; J7030; J7120; Q9967